=== PATIENT | female | born 1950 | race Caucasian/White ===

== ENCOUNTER 2017-05-25 13:42 | Outpatient (CLI) | payer MEDICARE | END 2017-05-25 13:43 | disposition critical access hospital (66) | LOC: EMS 13:42 | PROVIDERS: ATTEND Surgery | DX: M25.551 Pain in right hip (principal); W18.30XA Fall on same level, unspecified, initial encounter; Y93.01 Activity, walking, marching and hiking; Y92.414 Local residential or business street as the place of occurrence of the external cause | CPT/HCPCS: A0425; A0427 ==

== ENCOUNTER 2017-05-25 13:59 | Inpatient (IN) | payer MEDICARE ==
[2017-05-25] MEDS ORDERED: HYDROmorphone 1 MG/ML CARPUJECT IVP STA ×2 (14:13→15:06)
[2017-05-25] MEDS ORDERED: ALBUTEROL NEB 2.5 MG/3 ML INH STA (14:14)
[2017-05-25] MEDS ORDERED: TETANUS/DIPHTHERIA/PERTUSSIS 0.5 ML SYRINGE IM ONE (14:15)
--- NOTE | 2017-05-25 14:15 | ED Physician Documentation ---
PD HPI LOWER EXT INJURY - Stated complaint Stated Complaint: HIP PX - Chief complaint Chief Complaint: Ext Problem - History obtained from History obtained from: Patient, EMS - History of Present Illness Timing - onset: Today (This is a 67-year-old woman with COPD, not oxygen dependent at home but does take albuterol frequently. She also drinks daily and had some alcohol around 1230. 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 At baseline she does not walk with a cane or walker. She went outside to take out the garbage and get the newspaper and turned rapidly and got dizzy and fell down, directly onto her right side. She did hit her head but denies headache, the major thing is her hip, it hurts a lot and she is unable to walk or bear weight. She also scraped up her hand and hurt her right elbow. Tetanus is unknown known.) - Additional information Additional information: She has a history of atrial fibrillation and is on amiodarone, she says she is not on any blood thinners. Review of Systems Ten Systems: 10 systems reviewed and negative Constitutional: denies: Fever, Chills Nose: denies: Rhinorrhea / runny nose, Congestion Cardiac: denies: Chest pain / pressure, Palpitations Respiratory: reports: Dyspnea, Cough GI: denies: Abdominal Pain, Nausea, Vomiting PD PAST MEDICAL HISTORY - Past Medical History Past Medical History: Yes Cardiovascular: Hypertension, Atrial fibrillation Respiratory: COPD - Present Medications Home Medications: Ambulatory Orders Medication Instructions Recorded Confirmed Amiodarone [Pacerone] 05/25/17 Hydrochlorothiazide 05/25/17 Losartan [Cozaar] 05/25/17 - Allergies Allergies/Adverse Reactions: Allergies Allergy/AdvReac Type Severity Reaction Status Date / Time bacitracin Allergy Unknown Verified 05/25/17 14:08 [From Neosporin ([id number])] bacitracin zinc * Allergy Unknown Verified 05/25/17 14:08 [From Neosporin ([id number])] meperidine HCl * Allergy Unknown Verified 05/25/17 14:09 [From Demerol] neomycin sulfate * Allergy Unknown Verified 05/25/17 14:08 [From Neosporin ([id number])] polymyxin B Allergy Unknown Verified 05/25/17 14:08 [From Neosporin ([id number])] - Living Situation Living Arrangement: reports: At home - Social History Does the pt smoke?: Yes Smoking Status: Current every day smoker Does the pt drink ETOH?: Yes - Family History Family history: reports: Non contributory PD ED PE NORMAL - Vitals Vital signs reviewed: Yes - General General: Alert and oriented X 3, No acute distress - HEENT HEENT: PERRL, EOMI, Other (Telangiectasias on the face) - Neck Neck: Supple, no meningeal sign, No bony TTP - Cardiac Cardiac: RRR, No murmur - Respiratory Respiratory: Other (Mildly diminished, wheezy, rhonchorous throughout, no focal findings) - Abdomen Abdomen: Normal bowel sounds, Soft, Non tender - Extremities Extremities: Other (Right hip is severely tender, shortened and held in slight flexion. The knee and the ankle are nontender in the left lower extremity and Left upper extremity are nontender. She has a little scrape over the third MCP dorsally on the right and she is unable to straighten the right elbow, although she is without tenderness there.) - Neuro Neuro: Alert and oriented X 3, postbed stitcher 2-12 intact, Normal speech - Psych Psych: Normal mood, Normal affect Results - Vitals Vitals: Vital Signs - 24 hr 05/25/17 05/25/17 14:00 16:20 Temperature 35.7 C L Heart Rate 65 66 Respiratory 16 15 Rate Blood Pressure 187/92 H 173/84 H O2 Saturation 92 96 Oxygen O2 Source Nasal cannula - EKG (time done) 1508 Rate: Rate (enter#) (65) Rhythm: NSR (With PAC) [place]: Normal Intervals: Normal CA QRS: Normal Ischemia: Non specific changes (There is a lot of artifact but she does appear to have a QT prolongation and some scooped ST segments laterally) Compare to prior EKG: Old EKG unavailable Computer interpretation: Agree with computer - Labs Labs: Laboratory Tests 05/25/17 05/25/17 05/25/17 15:11 15:11 15:11 WBC 13.2 H RBC 3.22 L Hgb 13.8 Hct 38.2 MCV 118.6 H MCH 42.8 H MCHC 36.0 RDW 14.0 Plt Count 262 MPV 7.2 L Neut # 11.5 H Lymph # 1.0 L [place] # 0.6 Eos # 0.0 Baso # 0.0 Absolute Nucleated RBC 0.00 Nucleated RBC % 0.0 Manual Slide Review Indicated Platelet Estimate NORMAL (130-450,000) RBC Morph Micro Appear 2+ MACROCYTOSIS PT 10.8 INR 1.0 Sodium Potassium Chloride Carbon Dioxide Anion Gap BUN Creatinine Estimated GFR (MDRD) Glucose Calcium Total Bilirubin AST ALT Alkaline Phosphatase Total Protein Albumin Globulin Albumin/Globulin Ratio Lipase Ethyl Alcohol Blood Type O POSITIVE Antibody Screen NEGATIVE 05/25/17 15:11 WBC RBC Hgb Hct MCV MCH MCHC RDW Plt Count MPV Neut # Lymph # [place] # Eos # Baso # Absolute Nucleated RBC Nucleated RBC % Manual Slide Review Platelet Estimate RBC Morph Micro Appear PT INR Sodium 116 L* Potassium 2.7 L Chloride 76 L* Carbon Dioxide 27 Anion Gap 13.0 BUN 10 Creatinine 0.7 Estimated GFR (MDRD) 83 L Glucose 145 H Calcium 8.5 Total Bilirubin 1.2 H AST 51 H ALT 31 Alkaline Phosphatase 142 H Total Protein 6.7 Albumin 3.8 Globulin 2.9 Albumin/Globulin Ratio 1.3 Lipase 36 Ethyl Alcohol < 5.0 Blood Type Antibody Screen - Rads (name of study) CT Head and Cspine Radiology: EMP read contemporaneously (Chronic findings only, no acute trauma) Single view chest Radiology: EMP read contemporaneously (normal) Right hand x-ray Radiology: EMP read contemporaneously (Degenerative changes without acute fracture) Right hip x-ray Radiology: EMP read contemporaneously (Acute femoral neck fracture) R elbow Radiology: EMP read contemporaneously (Displaced proximal olecranon fracture) Procedures - Splint (location) R elbow Splint applied by: Tech Type of splint: Fiberglass, Long arm, Posterior Other: Patient tolerated well, No complications, Neurovascular intact, Sling provided PD MEDICAL DECISION MAKING - ED course ED course: 67-year-old woman presents after ground-level fall with injuries on the right side, specifically the hip and the elbow. There is a concern for intoxication and therefore the head and neck are imaged as well. Imaging does demonstrate a displaced proximal right ulnar fracture and right intertrochanteric hip fracture. Dr. Drummond, the on-call orthopedist was consulted at 3 PM and reviewed her x-rays. He will consult and see the patient in the emergency department and defers to medicine for admission. Spoke with the hospitalist for admission at 3:08 PM. Departure - Departure Disposition: 66 [facility] DC/Xfer Clinical Impression: Hyponatremia Fall Qualifiers: Encounter type: initial encounter Qualified Code(s): W19.XXXA - Unspecified fall, initial encounter Fracture, intertrochanteric, right femur Qualifiers: Encounter type: initial encounter Fracture type: closed Fracture alignment: displaced Qualified Code(s): S72.141A - Displaced intertrochanteric fracture of right femur, initial encounter for closed fracture Fracture of proximal end of right ulna Qualifiers: Encounter type: initial encounter Fracture type: closed Fracture morphology: unspecified fracture morphology Qualified Code(s): S52.001A - Unspecified fracture of upper end of right ulna, initial encounter for closed fracture Condition: Serious
[2017-05-25] MEDS ORDERED: HYDROmorphone 1 MG/ML SYRINGE ONE (14:16)
--- NOTE | 2017-05-25 14:46 | CT Preliminary Report ---
Exam: CT Head W/O IMPRESSION: 1. No acute hemorrhage or mass effect. 2. Small areas of encephalomalacia in the left frontal lobe consistent with old infarcts or chronic t rauma. [facility] SITE ID: [id number]
--- NOTE | 2017-05-25 14:49 | CT Report ---
EXAM: CT HEAD EXAM DATE: 05/25/2017 02:32 PM. CLINICAL HISTORY: Fall with head injury. COMPARISON: None. TECHNIQUE: Multiaxial CT images were obtained from the foramen magnum to the vertex. IV contrast: Non e. Reformats: Coronal. In accordance with CT protocol optimization, one or more of the following dose reduction techniques w ere utilized for this exam: automated exposure control, adjustment of mA and/or KV based on patient s ize, or use of iterative reconstructive technique. FINDINGS: Parenchyma: There are small areas of cortical encephalomalacia in the left superior and medial fronta l lobe. Negative for intracranial acute hemorrhage. No midline shift. Extraaxial Spaces: No abnormal subdural or epidural fluid collection. Ventricles: Normal in size and position. Sinuses: There is mucosal thickening of the left sphenoid sinus. Other sinuses are clear. Bones: No evidence of fracture or calvarial defect. Other: None. IMPRESSION: 1. No acute hemorrhage or mass effect. 2. Small areas of encephalomalacia in the left frontal lobe consistent with old infarcts or chronic t rauma. [facility] Referring Provider Line: [phone] SITE ID: [id number]
--- NOTE | 2017-05-25 14:52 | CT Preliminary Report ---
Exam: CT Cervical Spine W/O IMPRESSION: 1. Chronic degenerative disk disease without acute fracture or subluxation. [facility] SITE ID: [id number]
--- NOTE | 2017-05-25 14:55 | CT Report ---
EXAM: CT CERVICAL SPINE WITHOUT CONTRAST DATE: 05/25/2017 02:32 PM HISTORY: Fall etoh. COMPARISONS: None. TECHNIQUE: Thin-section axial images were acquired of the cervical spine without contrast. Post-proce ssing: Coronal and sagittal reformats. Other: None. In accordance with CT protocol optimization, one or more of the following dose reduction techniques w ere utilized for this exam: automated exposure control, adjustment of mA and/or KV based on patient s ize, or use of iterative reconstructive technique. FINDINGS: Alignment: Normal. No scoliosis or spondylolisthesis. Bones: No fracture. No lytic or distracted bone lesion. There is multilevel degenerative disease. Interspace Levels/Facets: There is mild to moderate disk height loss at C5-C6. There is moderate disk height loss at C6-C7. The re is facet joint space narrowing greatest at left C4-C5. No significant bony central spinal canal st enosis. Musculature: Normal. No fatty atrophy. Other: There is exmx-wy-[id number] centrilobular emphysema. There is a low-density lesion in the left t hyroid lobe. IMPRESSION: 1. Chronic degenerative disk disease without acute fracture or subluxation. [facility] Referring Provider Line: [phone] SITE ID: [id number]
--- NOTE | 2017-05-25 15:11 | XRAY Preliminary Report ---
Exam: XR Chest 1 View IMPRESSION: Clear lungs. [facility] SITE ID: [id number]
--- NOTE | 2017-05-25 15:11 | XRAY Preliminary Report ---
Exam: XR Hand 3 View RT IMPRESSION: Chronic degenerative disease of the right hand including periarticular demineralization a nd second and third metacarpal phalangeal joint space narrowing, raising suspicion for rheumatoid art hritis. No acute fracture. [facility] SITE ID: [id number]
--- NOTE | 2017-05-25 15:13 | XRAY Report ---
EXAM: RIGHT HAND RADIOGRAPHY EXAM DATE: 05/25/2017 02:55 PM. CLINICAL HISTORY: Ground-level fall with hand injury. COMPARISON: None. TECHNIQUE: 3 views. FINDINGS: Bones: There is periarticular demineralization of the hand. There is sclerosis and spurring at the fi rst carpal metacarpal joint. There is diffuse demineralization present. Joints: There is moderate joint space narrowing of the second and third metacarpophalangeal joint. No dislocation. There is subluxation at the first carpal metacarpal joint. Soft Tissues: Normal. No soft tissue swelling. IMPRESSION: Chronic degenerative disease of the right hand including periarticular demineralization a nd second and third metacarpal phalangeal joint space narrowing, raising suspicion for rheumatoid art hritis. No acute fracture. [facility] Referring Provider Line: [phone] SITE ID: [id number]
--- NOTE | 2017-05-25 15:14 | XRAY Preliminary Report ---
Exam: XR Hip w/Pelvis 2-3V RT IMPRESSION: Acute fracture of right femoral neck. [facility] SITE ID: [id number]
--- NOTE | 2017-05-25 15:14 | XRAY Report ---
EXAM: CHEST RADIOGRAPHY EXAM DATE: 05/25/2017 02:56 PM. CLINICAL HISTORY: Injury. Fall. COMPARISON: None. TECHNIQUE: 1 view. FINDINGS: Lungs/Pleura: No focal opacities evident. No pleural effusion. No pneumothorax. Mediastinum: Within exam limitations, the cardiomediastinal contour is normal. Other: None. IMPRESSION: Clear lungs. [facility] Referring Provider Line: [phone] SITE ID: [id number]
--- NOTE | 2017-05-25 15:16 | XRAY Preliminary Report ---
Exam: XR Elbow 3 View RT IMPRESSION: Positive for a displaced olecranon fracture. [facility] SITE ID: [id number]
--- NOTE | 2017-05-25 15:16 | XRAY Report ---
EXAM: RIGHT HIP AND PELVIS RADIOGRAPHY EXAM DATE: 05/25/2017 02:56 PM. HISTORY: Hip inj. COMPARISONS: 12/03/2011. TECHNIQUE: 1 view of the pelvis and 1 view of the hip. FINDINGS: Bones: Positive for an intertrochanteric fracture of the right femur. Joints: No subluxation or dislocation. Soft Tissues: Nonobstructive bowel gas pattern. IMPRESSION: Acute fracture of right femoral neck. [facility] Referring Provider Line: [phone] SITE ID: [id number]
--- NOTE | 2017-05-25 15:19 | XRAY Report ---
EXAM: RIGHT ELBOW RADIOGRAPHY EXAM DATE: 05/25/2017 02:55 PM. CLINICAL HISTORY: Elbow injury and soft tissue swelling. COMPARISON: None. TECHNIQUE: 3 views. FINDINGS: Bones: Positive for a displaced fracture of the olecranon. The proximal olecranon fragment is displac ed by 2.8 cm. Joints: The radius capitellum alignment appears satisfactory. Soft Tissues: There is soft tissue swelling around the elbow. IMPRESSION: Positive for a displaced olecranon fracture. [facility] Referring Provider Line: [phone] SITE ID: [id number]
[2017-05-25 15:28] LABS: PT - PROTHROMBIN TIME 10.8 secs (9.9-12.6)
[2017-05-25 15:35] LABS: BASOPHILS % (AUTO) 0.1 %; EOSINOPHILS % (AUTO) 0.2 %; HCT - HEMATOCRIT 38.2 % (37.0-47.0); HGB - HEMOGLOBIN 13.8 g/dL (12.0-16.0); LYMPHOCYTES % (AUTO) 7.6 %; MEAN CORPUSCULAR HEMOGLOBIN 42.8 pg (27.0-31.0); MEAN CORPUSCULAR VOLUME 118.6 fL (81.0-99.0); MEAN PLATELET VOLUME 7.2 fL (7.9-10.8); MONOCYTES # (AUTO) 0.6 10^3/uL (0.0-1.0); MONOCYTES % (AUTO) 4.8 %; NEUTROPHILS # (AUTO) 11.5 10^3/uL (1.5-6.6); NEUTROPHILS % (AUTO) 87.3 %; RED BLOOD COUNT 3.22 10^6/uL (4.20-5.40); UNCORRECTED WHITE BLOOD COUNT 13.2 x10^3/uL; WHITE BLOOD COUNT 13.2 x10^3/uL (4.8-10.8)
[2017-05-25 15:44] LABS: ALBUMIN/GLOBULIN RATIO 1.3 (1.0-2.2); BILIRUBIN,TOTAL 1.2 mg/dL (0.2-1.0); BUN - BLOOD UREA NITROGEN 10 mg/dL (6-20); CALCIUM 8.5 mg/dL (8.5-10.3); CARBON DIOXIDE - CO2 27 mmol/L (21-32); CREATININE 0.7 mg/dL (0.4-1.0); GFR - MDRD 83 (>89); GLUCOSE 145 mg/dL (70-100); LIPASE 36 U/L (22-51); POTASSIUM 2.7 mmol/L (3.5-5.0); SODIUM 116 mmol/L (135-145); TOTAL PROTEIN 6.7 g/dL (6.7-8.2)
[2017-05-25] MEDS ORDERED: MULTIVITAMIN 10 ML in SODIUM CHLORIDE 0.9% 1,000 ML IV STA (15:44)
[2017-05-25] MEDS ORDERED: TETANUS/DIPHTHERIA TOXOID 0.5 ML SYRINGE IM ONE (15:44)
[2017-05-25] MEDS ORDERED: HYDROmorphone 1 MG/ML CARPUJECT ONE (15:44)
[2017-05-25] MEDS ORDERED: MAGNESIUM SULFATE 2 GRAM 2 GM/50 ML BAG IV STA (15:44)
[2017-05-25] MEDS ORDERED: THIAMINE INJ 100 MG, FOLIC ACID INJ 1 MG in SODIUM CHLORIDE 0.9% 100ML 100 ML IV STA (15:44)
[2017-05-25 15:45] LABS: CHLORIDE 76 mmol/L (101-111)
[2017-05-25 15:52] LABS: PLATELET ESTIMATE, MANUAL NORMAL (130-450,000) (NORMAL)
[2017-05-25] MEDS ORDERED: POTASSIUM CHLOR 10 MEQ/100 ML 10 MEQ/100 ML BAG IV ONE ×2 (15:56→16:37)
--- NOTE | 2017-05-25 16:02 | PROVIDER PROGRESS NOTE ---
Subjective - Prog Note Date Prog Note Date: 05/25/17 Prog Note Time: 16:00 - Subjective Subjective: Patient [facility] a GLF at home today sustaining a closed right IT/low basilar neck hip fracture and a closed right olecranon fracture. No LOC or other injury. No prior el;bow or hip fracture. No distal weakness/numbness. Objective - Vital Signs/Intake & Output Vital Signs: Vital Signs x48h Temp Pulse Resp BP Pulse Ox 05/25/17 14:00 35.7 C L 65 16 187/92 H 92 - Lab Results Fish Bones: 05/25/17 15:11 05/25/17 15:11 Other Labs: Lab Results x24hrs 05/25/17 05/25/17 05/25/17 Range/Units 15:11 15:11 15:11 WBC 13.2 H (4.8-10.8) x10^3/uL RBC 3.22 L (4.20-5.40) 10^6/uL Hgb 13.8 (12.0-16.0) g/dL Hct 38.2 (37.0-47.0) % MCV 118.6 H (81.0-99.0) fL MCH 42.8 H (27.0-31.0) pg MCHC 36.0 (32.0-36.0) g/dL RDW 14.0 (12.0-15.0) % Plt Count 262 (130-450) 10^3/uL MPV 7.2 L (7.9-10.8) fL Neut # 11.5 H (1.5-6.6) 10^3/uL Lymph # 1.0 L (1.5-3.5) 10^3/uL [place] # 0.6 (0.0-1.0) 10^3/uL Eos # 0.0 (0.0-0.7) 10^3/uL Baso # 0.0 (0.0-0.1) 10^3/uL Absolute Nucleated RBC 0.00 x10^3/uL Nucleated RBC % 0.0 /100WBC Manual Slide Review Indicated Platelet Estimate NORMAL (130-450,000) (NORMAL) RBC Morph Micro Appear 2+ MACROCYTOSIS (NORMAL) PT 10.8 (9.9-12.6) secs INR 1.0 (0.8-1.2) Sodium 116 L* (135-145) mmol/L Potassium 2.7 L (3.5-5.0) mmol/L Chloride 76 L* (101-111) mmol/L Carbon Dioxide 27 (21-32) mmol/L Anion Gap 13.0 (6-13) BUN 10 (6-20) mg/dL Creatinine 0.7 (0.4-1.0) mg/dL Estimated GFR (MDRD) 83 L (>89) Glucose 145 H (70-100) mg/dL Calcium 8.5 (8.5-10.3) mg/dL Total Bilirubin 1.2 H (0.2-1.0) mg/dL AST 51 H (10-42) IU/L ALT 31 (10-60) IU/L Alkaline Phosphatase 142 H (42-121) IU/L Total Protein 6.7 (6.7-8.2) g/dL Albumin 3.8 (3.2-5.5) g/dL Globulin 2.9 (2.1-4.2) g/dL Albumin/Globulin Ratio 1.3 (1.0-2.2) Lipase 36 (22-51) U/L Ethyl Alcohol < 5.0 mg/dL - Diagnostic Imaging Diagnostic Imaging Comments: XR show a displaced right olecranon fracture. Displaced right IT or low basilar neck hip fracture - Other Results/Comments Other Results/Comments: EXAM: Painful right elbow ROM with superficial abrasions about elbow. Moves fingers well. Sensation intact. Good cap filling. Painful right hip ROM. Sensation intact. Moves toes well. Good cap filling Assessment/Plan - Problem List (1) Fracture, intertrochanteric, right femur Impression: Plan: After medical stabilization, plan surgical fixation of hip fracture. Mindyt short interTan nailing of hip fracture. [facility] AM and Dr. Carl Ledezma will be taking over orthopedic care for this patient. Qualifiers: Encounter type: initial encounter Fracture type: closed Fracture alignment: displaced Qualified Code(s): S72.141A - Displaced intertrochanteric fracture of right femur, initial encounter for closed fracture (2) Fracture of proximal end of right ulna Impression: PLAN: After medical stabilization, plan ORIF of olecranon fracture, likely with tension band wiring of fracture. Likely both surgeries will be done at the same time. Dr. Ledezma will be performing sugery after medical stabilization of patient. Qualifiers: Encounter type: initial encounter Fracture type: closed Fracture morphology: unspecified fracture morphology Qualified Code(s): S52.001A - Unspecified fracture of upper end of right ulna, initial encounter for closed fracture
[2017-05-25] MEDS ORDERED: MAGNESIUM SULFATE 2 GRAM 2 GM/50 ML BAG IV ONE (16:03)
--- NOTE | 2017-05-25 17:17 | CONSULTATION NOTE ---
DATE OF CONSULTATION: REQUESTING PROVIDER: Sal Ybarra MD of the emergency room department. HISTORY OF PRESENT ILLNESS: The patient is a 67-year-old female who apparently was evaluate d in the emergency room on the day of her admission following a ground-level fall at her home. The pa tient denied any loss of consciousness. Noted immediate pain in her right hip and right elbow was beba ble to stand and weight bear on the right side. Taken by the to the emergency room by ambulance for a n evaluation of her injuries. Again, denied any loss of consciousness. No distal weakness or numbness noted in the right upper extremity. No prior fractures noted. EXAMINATION: Some superficial abrasions around the right elbow. There is a painful crepitation noted at the right elbow with range of motion. The patient moves her fingers and thumb well. Sensation inta ct throughout. Good capillary filling of the digits noted. PHYSICAL EXAMINATION: Right hip shows painful range of motion of the hip today. Tenderness over the l ateral aspect of the hip noted. The patient moves her toes well. Sensation intact in the right lower extremity. Good capillary filling noted of the digits as well. X-rays that were taken show a displaced right olecranon fracture present. Also, a displaced intertroc hanteric/low basilar neck hip fracture on the right side was noted on films as well. ADMISSION LABORATORIES: Abnormal including a sodium of 116, a chloride of 76. ASSESSMENT 1. Displaced right intertrochanteric/low basilar neck hip fracture. 2. Closed displaced right dominant olecranon fracture. 3. Hyponatremia. PLAN: The patient is being admitted to the medical service for medical evaluation and stabilization, particularly with regard to her hyponatremia. Once her condition is stabilized and she has been medic ally cleared, she will likely require surgical orthopedic stabilization and fixation of her fractures . One option would be proceeding with a short InterTan nailing of her right hip fracture as well as a tension band wiring and fixation for her right olecranon fracture. Beginning on May 26, Dr. Mirela Ledezma will be following the patient or her orthopedic needs on this hospitalization. I have discussed the patient's diagnosis and potential treatment options with the patient already. No c onsent has been signed yet. JOB #: [id number] EXT JOB #:[id number]
[2017-05-25] MEDS ORDERED: PROCHLORPERAZINE 10 MG/2 ML VIAL IVP PRN (17:20)
[2017-05-25] MEDS ORDERED: SODIUM CHLORIDE 0.9% 1,000 ML IV SCH ×2 (18:00→22:21)
[2017-05-25] MEDS ORDERED: LORazepam 0.5 MG TABLET PO PRN (18:51)
[2017-05-25] MEDS: HYDROmorphone 1 MG/ML SYRINGE IVP PRN (19:37)
[2017-05-25] MEDS: SODIUM CHLORIDE FLUSH 0.9% 10 ML SYRINGE IVP PRN (19:37)
[2017-05-25] MEDS: NICOTINE 7 MG PATCH TOP SCH (19:41)
[2017-05-25] MEDS: SODIUM CHLORIDE FLUSH 0.9% 10 ML SYRINGE IVP SCH (21:13)
[2017-05-25] MEDS: PANTOPRAZOLE 40 MG VIAL IVP SCH (21:13)
[2017-05-25 21:49] LABS: MAGNESIUM 2.3 mg/dL (1.7-2.8); PHOSPHORUS 2.6 mg/dL (2.5-4.6)
[2017-05-25] MEDS: oxyCODONE 5 MG TABLET PO PRN (22:16)
[2017-05-25] MEDS: POTASSIUM CHLORIDE 20 MEQ TABLET PO SCH (22:17)
[2017-05-25] MEDS: SODIUM CHLORIDE 0.9% 1,000 ML IV SCH (22:45)
[2017-05-25] MEDS ORDERED: POTASSIUM CHLOR 20 MEQ/100 ML 20 MEQ/100 ML BAG IV SCH (23:00)
--- NOTE | 2017-05-26 00:10 | HISTORY & PHYSICAL EXAMINATION ---
DATE OF ADMISSION: 05/25/2017 HISTORY OF PRESENT ILLNESS: This is a 67-year-old white female with history of atrial fibrillation on Pacerone to maintain sinus rhythm, she does not take any anticoagulants, however (for unknown reasons). She has a history of excessive alcohol intake with "8 shots of vodka mixed drinks daily" and she has a history of hypertension and COPD and continues to smoke. Today, the patient was outdoors and took a rapid turn and got dizzy and fell down directly onto her right side and has come in with multiple areas of pain and trauma and found to have a hip fracture as well as an elbow fracture. The patient denies any chest pain, palpitations, full syncope. She denies any CHF symptoms. In general she is compliant with her medications. MEDICATIONS AT HOME: 1. Amiodarone 200 mg daily. 2. Hydrochlorothiazide unknown dose daily. 3. Losartan unknown dose daily. ALLERGIES: 1. BACITRACIN. 2. DEMEROL. 3. NEOMYCIN. 4. POLYMYXIN. SOCIAL HISTORY: She is a smoker of 1 pack per day for many years. She denies any marijuana use or illicit drug use. She does drink alcohol as described above and the remainder of the ROS is negative. FAMILY HISTORY: Noncontributory. No cardiac history or other major history. REVIEW OF SYSTEMS: A complete review of systems was done and the only pertinent positives or negatives are in the HPI. PHYSICAL EXAMINATION: GENERAL: Reveals a white female who appears slightly lethargic (pain medications were given in the ER). VITAL SIGNS: Blood pressure 187/92 initially in the ER with a heart rate of 65 in normal sinus rhythm, afebrile. HEENT: Unremarkable. Mucosa is moist. NECK: Shows no JVD in a vertical position. No carotid bruits. CHEST: Clear. HEART: Sounds are normal. ABDOMEN: Soft, nontender to light palpation. EXTREMITIES: No clubbing, cyanosis, or edema. She has her right arm in a sling. EKG: Normal sinus rhythm with left atrial enlargement and LVH with strain pattern and a PAC. Chest x-ray: no active pulmonary disease. LABS: Sodium 116, potassium 2.7, BUN 10, creatinine 0.7, magnesium 2.3, total bilirubin 1.2, AST 51, ALT 31, alkaline phosphatase 142, normal lipase. INR is normal at 1.0. White blood count 13.2 with a left shift, hemoglobin 13.8 with MCV of 118 and the RBC morphology shows macrocytosis. IMPRESSION: 1. Hyponatremia, marked, which is likely from alcohol intake and possibly poor diet. 2. Hypokalemia. 3. Status post fall with trauma, right hip fracture and elbow fracture. 4. History of afib, but is NSR on Amiodarone. On no aspirin or anticoagulant due to unknown reason. 5. Elevated MCV on CBC is consistent with vitamin deficiencies connected with alcohol abuse. 6. Alcohol abuse. PLAN: Admit the patient to the ICU for close monitoring due to marked hyponatremia, watch for seizures. Start the patient on normal saline for sodium replacement and restrict free water enterally and parenterally. Continue the patient's Pacerone which is maintaining sinus rhythm. Replace her potassium. Follow her electrolytes. Agree with the thiamine, multivitamin and "banana bag" replacements that were already started in the emergency room and continue with thiamine and folate replacement and vitamin replacement. Start the patient on Ativan p.r.n. for the potential of alcohol withdrawal. Start the patient on Nicoderm patch for tobacco withdrawal. Plan for surgery from Orthopedics as per their consult. JOB #: [id number] EXT JOB #:[id number] ISIAH
[2017-05-26] MEDS: oxyCODONE 5 MG TABLET PO PRN ×2 (02:21→21:05)
[2017-05-26] MEDS: POTASSIUM CHLORIDE 20 MEQ TABLET PO SCH (02:21)
[2017-05-26] MEDS: HYDROmorphone 1 MG/ML SYRINGE IVP PRN ×3 (03:46→18:15)
[2017-05-26] MEDS: SODIUM CHLORIDE 0.9% 1,000 ML IV SCH ×3 (04:19→20:06)
[2017-05-26] MEDS: SODIUM CHLORIDE FLUSH 0.9% 10 ML SYRINGE IVP SCH ×3 (05:55→20:40)
[2017-05-26 06:17] LABS: BASOPHILS % (AUTO) 0.2 %; HCT - HEMATOCRIT 34.7 % (37.0-47.0); HGB - HEMOGLOBIN 12.3 g/dL (12.0-16.0); LYMPHOCYTES # (AUTO) 0.9 10^3/uL (1.5-3.5); MEAN CORPUSCULAR HEMOGLOBIN 43.7 pg (27.0-31.0); MEAN CORPUSCULAR HGB CONC 35.6 g/dL (32.0-36.0); MEAN CORPUSCULAR VOLUME 122.8 fL (81.0-99.0); MONOCYTES # (AUTO) 0.9 10^3/uL (0.0-1.0); MONOCYTES % (AUTO) 7.4 %; NEUTROPHILS # (AUTO) 10.7 10^3/uL (1.5-6.6); NEUTROPHILS % (AUTO) 85.4 %; RED BLOOD COUNT 2.82 10^6/uL (4.20-5.40); RED CELL DISTRIBUTION WIDTH 13.8 % (12.0-15.0); UNCORRECTED WHITE BLOOD COUNT 13.2 x10^3/uL; WHITE BLOOD COUNT 12.5 x10^3/uL (4.8-10.8)
[2017-05-26 06:26] LABS: BILIRUBIN,DIRECT 0.2 mg/dL (0.1-0.5); BILIRUBIN,TOTAL 0.6 mg/dL (0.2-1.0); CREATININE 0.7 mg/dL (0.4-1.0); MAGNESIUM 1.9 mg/dL (1.7-2.8); PHOSPHORUS 2.6 mg/dL (2.5-4.6); TOTAL PROTEIN 5.7 g/dL (6.7-8.2)
[2017-05-26] MEDS: POTASSIUM CHLOR 10 MEQ/100 ML 10 MEQ/100 ML BAG IV SCH ×4 (06:42→10:25)
[2017-05-26 07:11] LABS: PLATELET ESTIMATE, MANUAL DECREASED (<130,000) (NORMAL); PLATELET MORPHOLOGY PLATELET CLUMPING (NORMAL)
[2017-05-26] MEDS ORDERED: LOSARTAN 50 MG TABLET PO SCH (09:00)
[2017-05-26] MEDS: NICOTINE 7 MG PATCH TOP SCH (09:38)
[2017-05-26] MEDS: PANTOPRAZOLE 40 MG VIAL IVP SCH ×2 (09:38→20:40)
[2017-05-26] MEDS: THIAMINE 100 MG TABLET PO SCH (09:39)
[2017-05-26] MEDS: AMIODARONE 200 MG TABLET PO SCH (09:48)
--- NOTE | 2017-05-26 17:31 | PROVIDER PROGRESS NOTE ---
Assessment/Plan - Problem List (1) Hyponatremia Assessment/Plan: Improving serum Na with free water restriction and saline hydration. Continue to monitor labs (2) Alcohol abuse Assessment/Plan: Pt is on Ativan to prevent DTs, is somnolent. Continue to monitor (3) Fracture, intertrochanteric, right femur Qualifiers: Encounter type: initial encounter Fracture type: closed Fracture alignment: displaced Qualified Code(s): S72.141A - Displaced intertrochanteric fracture of right femur, initial encounter for closed fracture Assessment/Plan: Sandy saenz. Dr Veloz has planned ortho surgery for tomorrow, will feed Pt today (4) Hypotension Assessment/Plan: Borderline. This is probably due to sedation and Losartan dose. Will DC Losartan currently. Will continue hydration att 100 cc/hr (5) Afib Assessment/Plan: Hx of Afib, but Pt in NSR on Amiodarone, which will be continued - Current Meds Current Meds: Current Medications Generic Name Dose Route Start Last Admin Trade Name Freq PRN Reason Stop Dose Admin Amiodarone HCl 200 mg 05/26/17 09:00 05/26/17 09:48 Pacerone PO 200 mg DAILY RAFA Administration Hydromorphone HCl 1 mg 05/25/17 17:20 05/26/17 12:48 Dilaudid Inj Syringe IVP 1 mg Q2HR PRN Administration Pain 8 to 10 Sodium Chloride 1,000 mls @ 100 mls/hr 05/25/17 18:00 05/26/17 09:09 Normal Saline 0.9% IV 100 mls/hr .Q10H RAFA Administration Lorazepam 0.5 mg 05/25/17 18:51 05/26/17 05:55 Ativan PO 0.5 mg Q6H PRN Administration Anxiety Losartan Potassium 25 mg 05/26/17 09:00 05/26/17 09:39 Cozaar PO 25 mg DAILY RAFA Administration Nicotine 1 patch 05/25/17 19:00 05/26/17 09:38 Nicoderm TOP 1 patch DAILY RAFA Administration Oxycodone HCl 5 mg 05/25/17 17:20 05/26/17 02:21 Roxicodone PO 5 mg Q4HR PRN Administration Pain 5 to 7 Pantoprazole Sodium 40 mg 05/25/17 21:00 05/26/17 09:38 Protonix IVP 40 mg BID RAFA Administration Sodium Chloride 10 ml 05/25/17 22:00 05/26/17 15:15 Normal Saline Flush 0.9% IVP Not Given Q8HR RAFA Sodium Chloride 10 ml 05/25/17 17:20 05/25/17 19:37 Normal Saline Flush 0.9% IVP 10 ml PRN PRN Administration NEEDED PER PROVIDER ORDERS Thiamine HCl 100 mg 05/26/17 09:00 05/26/17 09:39 Vitamin B-1 PO 100 mg DAILY RAFA Administration - Lab Result Fish Bone Diagrams: 05/26/17 05:09 05/26/17 05:09 - Additional Planning My Orders: My Active Orders 05/25/17 18:00 Sodium Chloride 0.9% [Normal Saline 0.9%] 1,000 ml IV 100 mls/hr 05/25/17 18:51 LORazepam [Ativan] 0.5 mg PO Q6H PRN 05/25/17 19:00 Nicotine 7 mg Patch [Nicoderm] 1 patch TOP DAILY 05/26/17 09:00 Amiodarone [Pacerone] 200 mg PO DAILY Losartan [Cozaar] 25 mg PO DAILY Thiamine [Vitamin B-1] 100 mg PO DAILY 05/26/17 Breakfast DIET [Regular Diet] [DIET] 05/27/17 05:00 BMP - BASIC METABOLIC PANEL [CHEM] DAILYLAB CBC - COMP BLD CT W/AUTO DIFF [HEME] DAILYLAB LIVER PANEL [CHEM] DAILYLAB Subjective - Subjective Patient Reports: Resting Comfortably Nursing Reports: Other (Has diffuse pain) Objective Vital Signs: Vital Signs - 24 hr 05/25/17 05/25/17 05/25/17 19:00 19:29 20:00 Temperature 36.7 C 36.5 C Heart Rate [ 64 66 65 Monitoring electrodes] Respiratory 16 14 18 Rate Blood Pressure 160/81 H 122/64 114/74 [Brachial artery] O2 Saturation 93 92 95 05/25/17 05/25/17 05/25/17 21:00 22:09 22:21 Temperature Heart Rate [ 63 73 64 Monitoring electrodes] Respiratory 14 11 L 11 L Rate Blood Pressure 105/62 71/59 L 137/68 H [Brachial artery] O2 Saturation 95 94 96 05/25/17 05/26/17 05/26/17 23:00 00:00 01:00 Temperature 36.5 C Heart Rate [ 63 67 66 Monitoring electrodes] Respiratory 12 14 14 Rate Blood Pressure 101/54 L 101/57 L 108/60 [Brachial artery] O2 Saturation 97 99 97 05/26/17 05/26/17 05/26/17 02:00 03:00 04:00 Temperature 36.8 C Heart Rate [ 65 66 68 Monitoring electrodes] Respiratory 14 16 10 L Rate Blood Pressure 112/62 127/66 127/69 [Brachial artery] O2 Saturation 100 100 100 05/26/17 05/26/17 05/26/17 05:00 06:00 07:00 Temperature Heart Rate [ 67 67 67 Monitoring electrodes] Respiratory 14 10 L 13 Rate Blood Pressure 136/75 H 121/60 106/66 [Brachial artery] O2 Saturation 100 97 99 05/26/17 05/26/17 05/26/17 08:00 09:00 10:00 Temperature 36.9 C Heart Rate [ 68 69 73 Monitoring electrodes] Respiratory 15 19 20 Rate Blood Pressure 107/77 109/69 108/63 [Brachial artery] O2 Saturation 98 100 100 05/26/17 05/26/17 05/26/17 11:00 12:00 13:00 Temperature 36.9 C Heart Rate [ 71 78 74 Monitoring electrodes] Respiratory 16 16 20 Rate Blood Pressure 110/70 105/61 103/63 [Brachial artery] O2 Saturation 100 100 100 05/26/17 05/26/17 05/26/17 14:00 15:00 16:00 Temperature 37.1 C Heart Rate [ 74 72 77 Monitoring electrodes] Respiratory 14 16 18 Rate Blood Pressure 106/56 L 92/38 L 91/60 [Brachial artery] O2 Saturation 100 100 100 Oxygen O2 Source Nasal cannula I&O (Last 24 Hrs): Intake and Output Totals x24h 05/24/17 05/25/17 05/26/17 23:59 23:59 23:59 Intake Total 3886.2 1520 Output Total 563 551 Balance 3323.2 969 General: Other (Sleepy) HEENT: Mucous membr. moist/pink Neck: Supple Cardiovascular: Regular rate Respiratory: No respiratory distress Abdomen: Soft Extremities: No edema, Other (Arm sling R) - Results Results: Laboratory Results WBC 12.5 x10^3/uL (4.8-10.8) H 05/26/17 05:09 RBC 2.82 10^6/uL (4.20-5.40) L 05/26/17 05:09 Hgb 12.3 g/dL (12.0-16.0) 05/26/17 05:09 Hct 34.7 % (37.0-47.0) L 05/26/17 05:09 MCV 122.8 fL (81.0-99.0) H 05/26/17 05:09 MCH 43.7 pg (27.0-31.0) H 05/26/17 05:09 MCHC 35.6 g/dL (32.0-36.0) 05/26/17 05:09 RDW 13.8 % (12.0-15.0) 05/26/17 05:09 Plt Count TNP 05/26/17 05:09 MPV TNP 05/26/17 05:09 Neut # 10.7 10^3/uL (1.5-6.6) H 05/26/17 05:09 Lymph # 0.9 10^3/uL (1.5-3.5) L 05/26/17 05:09 Donley # 0.9 10^3/uL (0.0-1.0) 05/26/17 05:09 Eos # 0.0 10^3/uL (0.0-0.7) 05/26/17 05:09 Baso # 0.0 10^3/uL (0.0-0.1) 05/26/17 05:09 Absolute Nucleated RBC 0.00 x10^3/uL 05/26/17 05:09 Nucleated RBC % 0.0 /100WBC 05/26/17 05:09 Manual Slide Review Indicated 05/26/17 05:09 Platelet Estimate DECREASED (<130,000) (NORMAL) 05/26/17 05:09 Platelet Morphology PLATELET CLUMPING (NORMAL) 05/26/17 05:09 RBC Morph Micro Appear 1+ STOMATOCYTES (NORMAL) 05/26/17 05:09 PT 10.8 secs (9.9-12.6) 05/25/17 15:11 INR 1.0 (0.8-1.2) 05/25/17 15:11 Sodium 122 mmol/L (135-145) L 05/26/17 05:09 Potassium 3.0 mmol/L (3.5-5.0) L 05/26/17 05:09 Chloride 90 mmol/L (101-111) L 05/26/17 05:09 Carbon Dioxide 24 mmol/L (21-32) 05/26/17 05:09 Anion Gap 8.0 (6-13) 05/26/17 05:09 BUN 11 mg/dL (6-20) 05/26/17 05:09 Creatinine 0.7 mg/dL (0.4-1.0) 05/26/17 05:09 Estimated GFR (MDRD) 83 (>89) L 05/26/17 05:09 Glucose 118 mg/dL (70-100) H 05/26/17 05:09 Calcium 8.0 mg/dL (8.5-10.3) L 05/26/17 05:09 Phosphorus 2.6 mg/dL (2.5-4.6) 05/26/17 05:09 Magnesium 1.9 mg/dL (1.7-2.8) 05/26/17 05:09 Total Bilirubin 0.6 mg/dL (0.2-1.0) 05/26/17 05:09 Direct Bilirubin 0.2 mg/dL (0.1-0.5) 05/26/17 05:09 AST 40 IU/L (10-42) 05/26/17 05:09 ALT 24 IU/L (10-60) 05/26/17 05:09 Alkaline Phosphatase 127 IU/L (42-121) H 05/26/17 05:09 Total Protein 5.7 g/dL (6.7-8.2) L 05/26/17 05:09 Albumin 3.3 g/dL (3.2-5.5) 05/26/17 05:09 Globulin 2.4 g/dL (2.1-4.2) 05/26/17 05:09 Albumin/Globulin Ratio 1.3 (1.0-2.2) 05/25/17 15:11 Lipase 36 U/L (22-51) 05/25/17 15:11 Ethyl Alcohol < 5.0 mg/dL 05/25/17 15:11 Blood Type O POSITIVE 05/25/17 15:11 Antibody Screen NEGATIVE 05/25/17 15:11
[2017-05-26] MEDS ORDERED: SODIUM CHLORIDE 0.9% 500 ML IV SCH (23:15)
[2017-05-26] MEDS ORDERED: LORazepam 2 MG/ML SYRINGE IVP PRN (23:23)
[2017-05-27] MEDS: oxyCODONE 5 MG TABLET PO PRN (01:38)
[2017-05-27] MEDS ORDERED: SODIUM CHLORIDE 0.9% 500 ML IV SCH (03:00)
[2017-05-27] MEDS: SODIUM CHLORIDE FLUSH 0.9% 10 ML SYRINGE IVP SCH ×3 (05:36→22:03)
[2017-05-27 05:49] LABS: EOSINOPHILS % (AUTO) 0.2 %; HCT - HEMATOCRIT 32.5 % (37.0-47.0); HGB - HEMOGLOBIN 11.4 g/dL (12.0-16.0); LYMPHOCYTES # (AUTO) 0.9 10^3/uL (1.5-3.5); LYMPHOCYTES % (AUTO) 7.9 %; MEAN CORPUSCULAR HEMOGLOBIN 44.1 pg (27.0-31.0); MEAN CORPUSCULAR VOLUME 125.9 fL (81.0-99.0); MEAN PLATELET VOLUME 7.9 fL (7.9-10.8); MONOCYTES # (AUTO) 0.9 10^3/uL (0.0-1.0); MONOCYTES % (AUTO) 7.8 %; NEUTROPHILS % (AUTO) 84.1 %; RED BLOOD COUNT 2.58 10^6/uL (4.20-5.40); RED CELL DISTRIBUTION WIDTH 13.6 % (12.0-15.0)
[2017-05-27 06:01] LABS: BILIRUBIN,DIRECT 0.1 mg/dL (0.1-0.5); BILIRUBIN,TOTAL 0.7 mg/dL (0.2-1.0); CREATININE 0.7 mg/dL (0.4-1.0)
[2017-05-27] MEDS: SODIUM CHLORIDE 0.9% 1,000 ML IV SCH ×2 (06:06→17:41)
[2017-05-27 06:10] LABS: MAGNESIUM 1.5 mg/dL (1.7-2.8); PHOSPHORUS 2.1 mg/dL (2.5-4.6)
[2017-05-27] MEDS: HYDROmorphone 1 MG/ML SYRINGE IVP PRN ×2 (06:13→17:41)
[2017-05-27] MEDS ORDERED: POTASSIUM PHOSPHATE 15 MMOL in SODIUM CHLORIDE 0.9% 250 ML IV ONE (06:17)
[2017-05-27] MEDS ORDERED: MAGNESIUM SULFATE 2 GRAM 2 GM/50 ML BAG IV ONE (06:17)
[2017-05-27 06:38] LABS: PLATELET ESTIMATE, MANUAL NORMAL (130-450,000) (NORMAL); PLATELET MORPHOLOGY NORMAL APPEARANCE (NORMAL)
[2017-05-27] MEDS: AMIODARONE 200 MG TABLET PO SCH (09:18)
[2017-05-27] MEDS: NICOTINE 7 MG PATCH TOP SCH (09:19)
[2017-05-27] MEDS: PANTOPRAZOLE 40 MG VIAL IVP SCH ×2 (09:19→21:53)
[2017-05-27] MEDS: THIAMINE 100 MG TABLET PO SCH (09:20)
[2017-05-27] MEDS: IPRATROPIUM/ALBUTEROL 3 ML NEB INH PRN ×2 (11:30→20:48)
[2017-05-27] MEDS ORDERED: SODIUM CHLORIDE 0.9% 1,000 ML IV ONE (12:49)
[2017-05-27] MEDS ORDERED: BUPIVACAINE 0.25%-EPI 1:200000 PF 30 ML VIAL SUBQ ONE ×4 (13:44→15:03)
[2017-05-27] MEDS ORDERED: LIDOCAINE-MPF 1% 30 ML VIAL SUBQ ONE (13:44)
[2017-05-27] MEDS ORDERED: LACTATED RINGERS 1,000 ML IV ONE (14:15)
--- NOTE | 2017-05-27 15:24 | OPERATIVE REPORT ---
Operative Report - General Admit Date: 05/25/17 Procedure Date: 05/27/17 Planned Procedure: ORIF right olecranon fracture/ Bipolar replacement right hip Pre-Op Diagnosis: Right Olecranon fracture/Right femoral neck fracture Procedure Performed: Right Olecranon ORIF Right hip bipolar replacement Post Op Diagnosis: same - Procedure Note Primary Surgeon: stefano Anesthesia Technique: General LMA Estimated Blood Loss (mL): 250
[2017-05-27] MEDS ORDERED: ONDANSETRON 4 MG/2 ML VIAL IVP PRN (15:25)
[2017-05-27] MEDS ORDERED: ACETAMINOPHEN 1,000 MG/100 ML 100 ML IV PRN (15:25)
[2017-05-27] MEDS ORDERED: ACETAMINOPHEN 325 MG TABLET PO PRN (15:25)
[2017-05-27] MEDS ORDERED: ACETAMINOPHEN 1,000 MG/100 ML 100 ML IV ONE (15:30)
[2017-05-27] MEDS ORDERED: ceFAZolin 1 GM VIAL IV ONE (15:30)
[2017-05-27] MEDS ORDERED: PROPOFOL 200 MG/20 ML VIAL IVP ONE (15:30)
[2017-05-27] MEDS ORDERED: fentaNYL 100 MCG/2 ML VIAL IVP ONE (15:30)
[2017-05-27] MEDS ORDERED: KETOROLAC 30 MG/ML VIAL IVP ONE (15:30)
[2017-05-27] MEDS ORDERED: ONDANSETRON 4 MG/2 ML VIAL IVP ONE (15:30)
[2017-05-27] MEDS ORDERED: DEXAMETHASONE 4 MG/ML VIAL IVP ONE (15:30)
[2017-05-27] MEDS ORDERED: ePHEDrine 50 MG/ML VIAL IVP ONE (15:30)
[2017-05-27] MEDS ORDERED: METOCLOPRAMIDE 10 MG/2 ML VIAL IVP ONE (15:30)
[2017-05-27] MEDS ORDERED: ROPIVACAINE 0.5% PF 20 ML AMPULE EP ONE (15:30)
[2017-05-27] MEDS ORDERED: TRANEXAMIC ACID 1,000 MG/10 ML VIAL IV ONE (15:30)
[2017-05-27] MEDS ORDERED: ALBUTEROL NEB 2.5 MG/3 ML INH ONE (15:54)
--- NOTE | 2017-05-27 17:04 | PROVIDER PROGRESS NOTE ---
Assessment/Plan - Problem List (1) Hyponatremia Assessment/Plan: Resolving Na up to 130 today Continue IVFs Patient clear for surgery Monitor Na (2) Alcohol abuse Assessment/Plan: Pt is on Ativan to prevent DTs History of alcohol abuse CIWA score 6-8 Monitor closely (3) Fracture, intertrochanteric, right femur Qualifiers: Encounter type: initial encounter Fracture type: closed Fracture alignment: displaced Qualified Code(s): S72.141A - Displaced intertrochanteric fracture of right femur, initial encounter for closed fracture Assessment/Plan: OR today POD#0 Bipolar replacement right hip Pain control PT evaluation tomorrow Patient will likely need rehab Start DVT prophylaxis post op (4) Right Olecranon Fracture Assessment/Plan: POD#0 ORIF right olecranon fracture Pain control PT evaluation tomorrow Patient will likely need rehab (5) Hypotension Assessment/Plan: Resolved with IVFs Will consider restarting antihypertensives tomorrow (6) Afib Assessment/Plan: Hx of Afib, but Pt in NSR on Amiodarone, which will be continued - Current Meds Current Meds: Current Medications Generic Name Dose Route Start Last Admin Trade Name Freq PRN Reason Stop Dose Admin Albuterol/Ipratropium 3 ml 05/27/17 11:16 05/27/17 11:30 Duoneb INH 3 ml Q4HR PRN Administration Wheezing Amiodarone HCl 200 mg 05/26/17 09:00 05/27/17 09:18 Pacerone PO Not Given DAILY RAFA Hydromorphone HCl 1 mg 05/25/17 17:20 05/27/17 06:13 Dilaudid Inj Syringe IVP 1 mg Q2HR PRN Administration Pain 8 to 10 Sodium Chloride 1,000 mls @ 100 mls/hr 05/25/17 18:00 05/27/17 12:30 Normal Saline 0.9% IV Infused .Q10H RAFA Infusion Lorazepam 0.5 mg 05/25/17 18:51 05/26/17 05:55 Ativan PO 0.5 mg Q6H PRN Administration Anxiety Nicotine 1 patch 05/25/17 19:00 05/27/17 09:19 Nicoderm TOP Not Given DAILY RAFA Oxycodone HCl 5 mg 05/25/17 17:20 05/27/17 01:38 Roxicodone PO 5 mg Q4HR PRN Administration Pain 5 to 7 Pantoprazole Sodium 40 mg 05/25/17 21:00 05/27/17 09:19 Protonix IVP Not Given BID RAFA Sodium Chloride 10 ml 05/25/17 22:00 05/27/17 13:54 Normal Saline Flush 0.9% IVP Not Given Q8HR RAFA Sodium Chloride 10 ml 05/25/17 17:20 05/25/17 19:37 Normal Saline Flush 0.9% IVP 10 ml PRN PRN Administration NEEDED PER PROVIDER ORDERS Thiamine HCl 100 mg 05/26/17 09:00 05/27/17 09:20 Vitamin B-1 PO Not Given DAILY RAFA - Lab Result Lab results reviewed: Yes Fish Bone Diagrams: 05/27/17 05:09 05/27/17 05:09 - Diagnostic Imaging Results Diagnostic Imaging Results: Final report reviewed - Additional Planning Condition/Complexity: Guarded My Orders: My Active Orders 05/27/17 11:16 Nebulizer/MDI Tx. [RC] QID Ipratropium/Albuterol [Duoneb] 3 ml INH Q4HR PRN Consult/Specialty: PT, Other (Ortho) Plan Discussed with:: Patient Time Spent: 31-60 minutes Subjective - Subjective Patient Reports: Pain (Right hip and right arm), Other (No fevers or chills overnight, no dizziness) Objective Vital Signs: Vital Signs - 24 hr 05/26/17 05/26/17 05/26/17 17:00 18:15 19:00 Temperature Heart Rate Heart Rate [ 78 80 79 Monitoring electrodes] Respiratory 14 14 12 Rate Blood Pressure 119/81 H 125/70 112/65 [Brachial artery] O2 Saturation 100 100 100 05/26/17 05/26/17 05/26/17 19:39 20:00 21:00 Temperature 37.0 C Heart Rate Heart Rate [ 78 78 76 Monitoring electrodes] Respiratory 17 16 16 Rate Blood Pressure 117/64 107/63 124/70 [Brachial artery] O2 Saturation 99 98 98 05/26/17 05/26/17 05/27/17 22:00 23:00 00:00 Temperature 36.6 C Heart Rate Heart Rate [ 75 76 84 Monitoring electrodes] Respiratory 13 14 20 Rate Blood Pressure 110/60 137/73 H 115/69 [Brachial artery] O2 Saturation 99 99 98 05/27/17 05/27/17 05/27/17 01:00 02:00 03:00 Temperature Heart Rate Heart Rate [ 80 81 80 Monitoring electrodes] Respiratory 15 19 16 Rate Blood Pressure 121/66 130/70 131/65 H [Brachial artery] O2 Saturation 99 99 99 05/27/17 05/27/17 05/27/17 04:00 05:00 06:00 Temperature 36.7 C Heart Rate Heart Rate [ 85 84 83 Monitoring electrodes] Respiratory 15 21 21 Rate Blood Pressure 131/71 H 133/73 H 151/75 H [Brachial artery] O2 Saturation 99 99 98 05/27/17 05/27/17 05/27/17 07:00 08:00 09:00 Temperature 36.6 C Heart Rate Heart Rate [ 83 82 81 Monitoring electrodes] Respiratory 14 16 15 Rate Blood Pressure 132/77 H 147/76 H 134/75 H [Brachial artery] O2 Saturation 98 97 98 05/27/17 05/27/17 05/27/17 10:00 11:00 11:30 Temperature Heart Rate 78 Heart Rate [ 80 80 Monitoring electrodes] Respiratory 17 16 11 L Rate Blood Pressure 136/75 H 149/84 H [Brachial artery] O2 Saturation 99 98 05/27/17 05/27/17 05/27/17 12:00 15:29 15:30 Temperature 37.2 C Heart Rate Heart Rate [ 84 Monitoring electrodes] Respiratory 20 Rate Blood Pressure 143/73 H [Brachial artery] O2 Saturation 97 100 100 05/27/17 05/27/17 05/27/17 15:35 15:40 15:45 Temperature Heart Rate Heart Rate [ Monitoring electrodes] Respiratory Rate Blood Pressure [Brachial artery] O2 Saturation 100 100 100 05/27/17 05/27/17 05/27/17 15:50 15:55 16:01 Temperature Heart Rate Heart Rate [ Monitoring electrodes] Respiratory Rate Blood Pressure [Brachial artery] O2 Saturation 100 100 93 05/27/17 05/27/17 05/27/17 16:06 16:16 16:43 Temperature 36.6 C Heart Rate Heart Rate [ 96 Monitoring electrodes] Respiratory 14 Rate Blood Pressure 146/86 H [Brachial artery] O2 Saturation 100 97 95 Oxygen O2 Source Room air I&O (Last 24 Hrs): Intake and Output Totals x24h 05/25/17 05/26/17 05/27/17 23:59 23:59 23:59 Intake Total 3886.2 2520 3366 Output Total 563 747 375 Balance 3323.2 1773 2991 General: Alert, Oriented x3, Other (slight tremor) HEENT: PERRLA, EOMI, Mucous membr. moist/pink Neck: Supple, No JVD, No thyromegaly, +2 carotid pulse wo bruit, No LAD Lymphatic: no adenopathy Neuro: Alert, Non Focal, CN 2-12 Grossly Intact, Oriented Times 3 Cardiovascular: Regular rate, Normal S1, Normal S2, No murmurs Respiratory: Chest non-tender, No respiratory distress, Breath sounds nml Abdomen: Normal bowel sounds, Soft, No tenderness, No hepatospenomegaly Extremities: Other (Right arm in a sling, right hip with limited ROM secondary to pain) Skin: No rashes, No breakdown - Results Results: Laboratory Results WBC 12.0 x10^3/uL (4.8-10.8) H 05/27/17 05:09 RBC 2.58 10^6/uL (4.20-5.40) L 05/27/17 05:09 Hgb 11.4 g/dL (12.0-16.0) L 05/27/17 05:09 Hct 32.5 % (37.0-47.0) L 05/27/17 05:09 MCV 125.9 fL (81.0-99.0) H 05/27/17 05:09 MCH 44.1 pg (27.0-31.0) H 05/27/17 05:09 MCHC 35.0 g/dL (32.0-36.0) 05/27/17 05:09 RDW 13.6 % (12.0-15.0) 05/27/17 05:09 Plt Count 165 10^3/uL (130-450) 05/27/17 05:09 MPV 7.9 fL (7.9-10.8) 05/27/17 05:09 Neut # 10.0 10^3/uL (1.5-6.6) H 05/27/17 05:09 Lymph # 0.9 10^3/uL (1.5-3.5) L 05/27/17 05:09 Wallace # 0.9 10^3/uL (0.0-1.0) 05/27/17 05:09 Eos # 0.0 10^3/uL (0.0-0.7) 05/27/17 05:09 Baso # 0.0 10^3/uL (0.0-0.1) 05/27/17 05:09 Absolute Nucleated RBC 0.00 x10^3/uL 05/27/17 05:09 Nucleated RBC % 0.0 /100WBC 05/27/17 05:09 Manual Slide Review Indicated 05/27/17 05:09 Platelet Estimate NORMAL (130-450,000) (NORMAL) 05/27/17 05:09 Platelet Morphology NORMAL APPEARANCE (NORMAL) 05/27/17 05:09 RBC Morph Micro Appear NORMAL APPEARANCE (NORMAL) 05/27/17 05:09 PT 10.8 secs (9.9-12.6) 05/25/17 15:11 INR 1.0 (0.8-1.2) 05/25/17 15:11 Sodium 130 mmol/L (135-145) L 05/27/17 05:09 Potassium 4.0 mmol/L (3.5-5.0) 05/27/17 05:09 Chloride 101 mmol/L (101-111) 05/27/17 05:09 Carbon Dioxide 22 mmol/L (21-32) 05/27/17 05:09 Anion Gap 7.0 (6-13) 05/27/17 05:09 BUN 7 mg/dL (6-20) 05/27/17 05:09 Creatinine 0.7 mg/dL (0.4-1.0) 05/27/17 05:09 Estimated GFR (MDRD) 83 (>89) L 05/27/17 05:09 Glucose 106 mg/dL (70-100) H 05/27/17 05:09 Calcium 8.0 mg/dL (8.5-10.3) L 05/27/17 05:09 Phosphorus 2.1 mg/dL (2.5-4.6) L 05/27/17 05:09 Magnesium 1.5 mg/dL (1.7-2.8) L 05/27/17 05:09 Total Bilirubin 0.7 mg/dL (0.2-1.0) 05/27/17 05:09 Direct Bilirubin 0.1 mg/dL (0.1-0.5) 05/27/17 05:09 AST 29 IU/L (10-42) 05/27/17 05:09 ALT 22 IU/L (10-60) 05/27/17 05:09 Alkaline Phosphatase 98 IU/L (42-121) 05/27/17 05:09 Total Protein 5.0 g/dL (6.7-8.2) L 05/27/17 05:09 Albumin 2.8 g/dL (3.2-5.5) L 05/27/17 05:09 Globulin 2.2 g/dL (2.1-4.2) 05/27/17 05:09 Albumin/Globulin Ratio 1.3 (1.0-2.2) 05/25/17 15:11 Lipase 36 U/L (22-51) 05/25/17 15:11 Ethyl Alcohol < 5.0 mg/dL 05/25/17 15:11 Blood Type O POSITIVE 05/25/17 15:11 Antibody Screen NEGATIVE 05/25/17 15:11
[2017-05-27] MEDS: SODIUM CHLORIDE FLUSH 0.9% 10 ML SYRINGE IVP PRN (17:41)
[2017-05-27] MEDS: ASPIRIN 325 MG TABLET PO SCH (17:42)
[2017-05-27] MEDS: ceFAZolin 2 GM/50 ML 2 GM/50 ML BAG IV SCH (17:42)
[2017-05-27] MEDS: ENOXAPARIN 40 MG/0.4 ML SYRINGE SUBQ SCH (17:43)
--- NOTE | 2017-05-27 18:03 | XRAY Preliminary Report ---
Exam: XR Hip w/Pelvis 2-3V RT IMPRESSION: Unremarkable postoperative exam. [facility] SITE ID: [id number]
--- NOTE | 2017-05-27 18:15 | XRAY Report ---
EXAM: RIGHT HIP AND PELVIS RADIOGRAPHY EXAM DATE: 05/27/2017 05:37 PM. HISTORY: Post op. Right hip fracture. COMPARISONS: 05/25/2017. TECHNIQUE: 1 view of the pelvis and 1 view of the hip. FINDINGS: Bones: No unexpected bony abnormality. Joints: Bones in anatomic alignment. Immediately status post right total hip replacement. Single cerclage wire proximal femoral metadiaphy sis. Moderate degenerative changes lower lumbar spine. Soft Tissues: Air and edema of the operative site. IMPRESSION: Unremarkable postoperative exam. [facility] Referring Provider Line: [phone] SITE ID: [id number]
--- NOTE | 2017-05-27 19:05 | OPERATIVE REPORT ---
DATE OF SURGERY: 05/27/2017 00:00:00 PREOPERATIVE DIAGNOSIS: Right displaced, closed olecranon fracture and right femoral neck displaced fracture. POSTOPERATIVE DIAGNOSIS: Right displaced, closed olecranon fracture and right femoral neck displaced fracture. NAME OF PROCEDURE: Right olecranon open reduction and internal fixation, and right cemented bipolar hip replacement. SURGEON: Mirela Ledezma MD ANESTHESIA: General. INDICATIONS FOR SURGERY: The patient is a 67-year-old female who suffered a ground-level fall, fractu ring her right elbow and her right femoral neck. The patient had a delay in surgery because of hypona tremia and other medical conditions, but was deemed stable for surgery today. The patient complained of essentially immobility and pain in both of these areas. She had not previously had hip arthritis. FINDINGS AT SURGERY: The patient's femoral neck was fractured very low at the base of the neck, with some comminution and small fracture lines directed towards the femur. The patient's cup was in good c ondition, with no arthritis. The patient's elbow showed comminution, but there was a small amount of fragmentation and a preserved articular surface. DESCRIPTION OF OPERATIVE PROCEDURE: The patient was taken to the operating room. She was placed in th e supine position and given a general anesthetic. She was then positioned left lateral decubitus, sup ported by a post, and her hip was sterilely prepped and draped in the standard fashion. The patient's approach was a posterior hip approach through the skin and subcutaneous tissue, dividing short rotat ors and exposing the underlying hip capsule, which was incised. The patient's femoral head was remove d, and the femur was then exposed and prepared for broaching. A cerclage cable was placed around the proximal femur to prevent any propagation of pre-existing fracture lines. The broaching was taken up to accommodate a 9 stem, and this equated to a size 7 echo-cemented stem. The appropriate height of t he stem was judged from the bone, the length of the bone relative to the cup, and the offset of the t rochanter. Ultimately, a size 7 echo stem was cemented in place. The cup was a -3 neck, 43 mm outer d iameter bipolar cup with a 28 mm head. This was assembled and inserted. The patient's limb length had been restored, and the stability was excellent. The wound was irrigated and closed with a FiberWire closure of the tensor fascia, Vicryl closure of the subcutaneous tissue, and Monocryl closure of the skin. Dressings were applied to the hip. Attention was then directed to the upper extremity, where a re-draping occurred, and a prep and drape of the elbow. The patient's olecranon was approached under tourniquet control, with a longitudinal i ncision over the olecranon and a careful dissection down to the fractured bone, which was irrigated f ree of clot. The fracture was reduced with a tenaculum clamp and 2 mm K-wires. Two in number were dri tara across the fracture site with the bone held anatomic. A cerclage of 18-gauge stainless steel was used in a tension band manner, which stabilized the fracture. The pins were bent, cut, and driven sea eath the level of the triceps insertion, and C-arm images confirmed reduction and placement of the im plants. Closure was then undertaken after irrigating and closing with a Vicryl interrupted closure chavez bcutaneous and Monocryl closure of skin, with sterile dressings applied. The patient was fitted in a posterior arm splint and taken to the recovery room in stable condition. ESTIMATED BLOOD LOSS: Approximately 100 mL for the hip and another 50 mL for the elbow. COMPLICATIONS: There were no complications. JOB #: [id number] JOB #:[id number]
[2017-05-27] MEDS: BUDESONIDE 0.5 MG/2 ML NEB INH SCH (20:48)
[2017-05-27] MEDS: FLUoxetine 10 MG CAPSULE PO SCH (21:53)
[2017-05-28] MEDS: ceFAZolin 2 GM/50 ML 2 GM/50 ML BAG IV SCH (00:14)
[2017-05-28] MEDS: HYDROmorphone 1 MG/ML SYRINGE IVP PRN ×4 (00:23→23:54)
[2017-05-28] MEDS: SODIUM CHLORIDE FLUSH 0.9% 10 ML SYRINGE IVP PRN ×4 (00:23→23:55)
[2017-05-28 05:12] LABS: HCT - HEMATOCRIT 28.4 % (37.0-47.0); HGB - HEMOGLOBIN 9.7 g/dL (12.0-16.0)
[2017-05-28] MEDS: HYDROcod/ACETAM 5/325 MG TABLET PO PRN ×2 (05:18→20:50)
[2017-05-28] MEDS: SODIUM CHLORIDE 0.9% 1,000 ML IV SCH ×2 (05:18→16:27)
[2017-05-28 05:21] LABS: ALBUMIN/GLOBULIN RATIO 1.1 (1.0-2.2); BILIRUBIN,TOTAL 0.5 mg/dL (0.2-1.0); CALCIUM 7.7 mg/dL (8.5-10.3); CREATININE 0.7 mg/dL (0.4-1.0); MAGNESIUM 1.7 mg/dL (1.7-2.8); PHOSPHORUS 3.1 mg/dL (2.5-4.6); POTASSIUM 4.2 mmol/L (3.5-5.0); TOTAL PROTEIN 4.8 g/dL (6.7-8.2)
[2017-05-28] MEDS: SODIUM CHLORIDE FLUSH 0.9% 10 ML SYRINGE IVP SCH ×3 (05:45→20:51)
--- NOTE | 2017-05-28 07:10 | PROVIDER PROGRESS NOTE ---
Subjective - General Admit Date: 05/25/17 Procedure Date: 05/27/17 Post Op Days: 1 Procedure Performed: Right Olecranon ORIF, Right Hip Hemiarthroplasty - Review of Systems Wound/Incisions: positive: Dressing dry and intact General: positive: Fatigue Musculoskeletal: positive: Joint pain Psychiatric: positive: No symptoms Objective - Patient Data Reviewed Vital Signs: Yes Vital Signs: Vital Signs x48h Temp Pulse Resp BP Pulse Ox 05/28/17 04:06 36.7 C 95 18 132/69 H 96 05/28/17 00:24 36.9 C 89 18 132/64 H 92 Weight: Weight 05/26/17 05/27/17 05/28/17 23:59 23:59 23:59 Weight (kg) 56 kg 58.5 kg 59 kg Intake & Output: Intake and Output Totals x24h 05/26/17 05/27/17 05/28/17 23:59 23:59 23:59 Intake Total 2520 4516 1300 Output Total 747 700 300 Balance 1773 3816 1000 - Lab Results Lab Results: 05/28/17 04:38 05/28/17 04:38 Other Lab Results: Lab Results x24hrs 05/28/17 05/28/17 Range/Units 04:38 04:38 Hgb 9.7 L (12.0-16.0) g/dL Hct 28.4 L (37.0-47.0) % Sodium 130 L (135-145) mmol/L Potassium 4.2 (3.5-5.0) mmol/L Chloride 101 (101-111) mmol/L Carbon Dioxide 20 L (21-32) mmol/L Anion Gap 9.0 (6-13) BUN 8 (6-20) mg/dL Creatinine 0.7 (0.4-1.0) mg/dL Estimated GFR (MDRD) 83 L (>89) Glucose 124 H (70-100) mg/dL Calcium 7.7 L (8.5-10.3) mg/dL Phosphorus 3.1 (2.5-4.6) mg/dL Magnesium 1.7 (1.7-2.8) mg/dL Total Bilirubin 0.5 (0.2-1.0) mg/dL AST 34 (10-42) IU/L ALT 18 (10-60) IU/L Alkaline Phosphatase 85 (42-121) IU/L Total Protein 4.8 L (6.7-8.2) g/dL Albumin 2.5 L (3.2-5.5) g/dL Globulin 2.3 (2.1-4.2) g/dL Albumin/Globulin Ratio 1.1 (1.0-2.2) - Imaging Results Radiology Imaging: positive: EMP read indepedently - Current Medications Current Medications: Current Medications Generic Name Dose Route Start Last Admin Trade Name Freq PRN Reason Stop Dose Admin Acetaminophen/Hydrocodone Bitart 1 tab 05/27/17 15:25 05/28/17 05:18 [place] 5/325 PO 1 tab Q4HR PRN Administration PAIN Albuterol/Ipratropium 3 ml 05/27/17 11:16 05/27/17 20:48 Duoneb INH 3 ml Q4HR PRN Administration Wheezing Amiodarone HCl 200 mg 05/26/17 09:00 05/27/17 09:18 Pacerone PO Not Given DAILY RAFA Aspirin 325 mg 05/27/17 17:00 05/27/17 17:42 Sky PO 325 mg BIDWM RAFA Administration Budesonide 0.5 mg 05/27/17 21:00 05/27/17 20:48 Pulmicort INH 0.5 mg RTBID RAFA Administration Enoxaparin Sodium 40 mg 05/27/17 18:00 05/27/17 17:43 Lovenox SUBQ 40 mg DAILY RAFA Administration Fluoxetine HCl 20 mg 05/27/17 21:00 05/27/17 21:53 Prozac PO 20 mg 2100 RAFA Administration Hydromorphone HCl 1 mg 05/25/17 17:20 05/28/17 00:23 Dilaudid Inj Syringe IVP 1 mg Q2HR PRN Administration Pain 8 to 10 Sodium Chloride 1,000 mls @ 100 mls/hr 05/25/17 18:00 05/28/17 05:18 Normal Saline 0.9% IV 100 mls/hr .Q10H RAFA Administration Lorazepam 0.5 mg 05/25/17 18:51 05/26/17 05:55 Ativan PO 0.5 mg Q6H PRN Administration Anxiety Nicotine 1 patch 05/25/17 19:00 05/27/17 09:19 Nicoderm TOP Not Given DAILY RAFA Oxycodone HCl 5 mg 05/25/17 17:20 05/27/17 01:38 Roxicodone PO 5 mg Q4HR PRN Administration Pain 5 to 7 Pantoprazole Sodium 40 mg 05/25/17 21:00 05/27/17 21:53 Protonix IVP 40 mg BID RAFA Administration Sodium Chloride 10 ml 05/25/17 22:00 05/28/17 05:45 Normal Saline Flush 0.9% IVP Not Given Q8HR RAFA Sodium Chloride 10 ml 05/25/17 17:20 05/28/17 00:23 Normal Saline Flush 0.9% IVP 10 ml PRN PRN Administration NEEDED PER PROVIDER ORDERS Thiamine HCl 100 mg 05/26/17 09:00 05/27/17 09:20 Vitamin B-1 PO Not Given DAILY RAFA - Physical Exam Wound/Incisions: positive: Healing well General Appearance: positive: No acute distress Skin: positive: No rash Extremities: positive: Joint swelling Neurologic/Psychiatric: positive: Motor nml, Sensation nml, Mood/affect nml Impression/Plan - Problem List Problem List: POD #1 Pt is more comfortable than preop and sitting in a chair. Pain is lessened. Dressing/splint intact. Plan for PT mobilization SNF plans to be made.
[2017-05-28] MEDS: BUDESONIDE 0.5 MG/2 ML NEB INH SCH ×2 (07:40→19:45)
[2017-05-28] MEDS: IPRATROPIUM/ALBUTEROL 3 ML NEB INH PRN ×2 (07:40→19:45)
[2017-05-28] MEDS: ASPIRIN 325 MG TABLET PO SCH ×2 (08:41→16:32)
[2017-05-28] MEDS: TRIAMT/HCTZ 37.5 MG/25 MG CAPSULE PO SCH (08:41)
[2017-05-28] MEDS: AMIODARONE 200 MG TABLET PO SCH (08:41)
[2017-05-28] MEDS: CARVEDILOL 12.5 MG TABLET PO SCH (08:41)
[2017-05-28] MEDS: THIAMINE 100 MG TABLET PO SCH (08:42)
[2017-05-28] MEDS: PANTOPRAZOLE 40 MG VIAL IVP SCH ×2 (08:42→20:50)
[2017-05-28] MEDS: ENOXAPARIN 40 MG/0.4 ML SYRINGE SUBQ SCH (08:43)
[2017-05-28] MEDS: NICOTINE 7 MG PATCH TOP SCH ×2 (08:43→08:44)
[2017-05-28] MEDS: oxyCODONE 5 MG TABLET PO PRN (10:27)
--- NOTE | 2017-05-28 13:01 | CONSULTATION NOTE ---
DATE OF CONSULTATION: 05/27/2017 00:00:00 REQUESTING PROVIDER: Rick Carver MD REASON FOR CONSULTATION: Right hip and right elbow injury. HISTORY OF PRESENT ILLNESS: This is a 67-year-old female who suffered a ground-level fall. She was ta jannette garbage out to the garbage can, fell down and injured her hip and elbow on pavement, suffering f ractures in each of these areas. She was admitted through the emergency room to medical care. Her dileep or medical history is documented in her admission notes. PHYSICAL EXAMINATION GENERAL: Physical exam remarkable for a thin and frail elderly female with a splint on her right elbo w, who was in bed and painful when moved. She is, however, alert and is oriented. EXTREMITIES: She has right elbow splinted, with swelling of her hand and mild abrasions on her dorsal hand. The elbow is reported to have abrasions on the elbow, but all superficial. Her limb is neurova scularly intact. The patient's right hip shows foreshortening and external rotation of the limb, swel ling of the hip area with intact skin at the hip, but frail and discolored skin in the distal leg, lo ngstanding. The patient does not have edema in her leg and is neurovascularly intact. The other limbs do not show injury, and the patient is able to move left lower extremity, left upper extremity witho ut any pain. X-rays reveal a displaced right olecranon fracture and a comminuted low right femoral neck fracture i n a hip that does not have evidence of previous hip arthritis. PLAN: Patient to be stabilized for medical and surgical care, which includes open reduction internal fixation of her right olecranon fracture and bipolar replacement of her right hip to be done as soon as feasible. JOB #: [id number] EXT JOB #:[id number]
--- NOTE | 2017-05-28 13:52 | PROVIDER PROGRESS NOTE ---
Assessment/Plan - Problem List (1) Hyponatremia Assessment/Plan: Resolving Na stable at 130 today Continue IVFs as patient is post op Monitor Na We maybe close to patients baseline at this point (2) Alcohol abuse Assessment/Plan: History of alcohol abuse CIWA score is low will stop CIWA protocol (3) Fracture, intertrochanteric, right femur Qualifiers: Encounter type: initial encounter Fracture type: closed Fracture alignment: displaced Qualified Code(s): S72.141A - Displaced intertrochanteric fracture of right femur, initial encounter for closed fracture Assessment/Plan: POD#1 Bipolar replacement right hip Pain controlled PT evaluation today Patient will likely need rehab Started DVT prophylaxis post op (4) Right Olecranon Fracture Assessment/Plan: POD#1 ORIF right olecranon fracture Pain controlled PT evaluation today Patient will likely need rehab (5) Hypotension Assessment/Plan: Hypotensive again today possibly secondary to dehydration after major surgery vs secondary to blood loss Check H&H Give IVF bolus Monitor closely (6) Afib Assessment/Plan: Hx of Afib, but Pt in NSR on Amiodarone, which will be continued - Current Meds Current Meds: Current Medications Generic Name Dose Route Start Last Admin Trade Name Freq PRN Reason Stop Dose Admin Acetaminophen/Hydrocodone Bitart 1 tab 05/27/17 15:25 05/28/17 05:18 [place] 5/325 PO 1 tab Q4HR PRN Administration PAIN Albuterol/Ipratropium 3 ml 05/27/17 11:16 05/28/17 07:40 Duoneb INH 3 ml Q4HR PRN Administration Wheezing Amiodarone HCl 200 mg 05/26/17 09:00 05/28/17 08:41 Pacerone PO 200 mg DAILY RAFA Administration Aspirin 325 mg 05/27/17 17:00 05/28/17 08:41 Sky PO 325 mg BIDWM RAFA Administration Budesonide 0.5 mg 05/27/17 21:00 05/28/17 07:40 Pulmicort INH 0.5 mg RTBID RAFA Administration Carvedilol 12.5 mg 05/28/17 09:00 05/28/17 08:41 Coreg PO 12.5 mg DAILY RAFA Administration Enoxaparin Sodium 40 mg 05/27/17 18:00 05/28/17 08:43 Lovenox SUBQ 40 mg DAILY RAFA Administration Fluoxetine HCl 20 mg 05/27/17 21:00 05/27/17 21:53 Prozac PO 20 mg 2100 RAFA Administration Hydromorphone HCl 1 mg 05/25/17 17:20 05/28/17 10:30 Dilaudid Inj Syringe IVP 1 mg Q2HR PRN Administration Pain 8 to 10 Sodium Chloride 1,000 mls @ 100 mls/hr 05/25/17 18:00 05/28/17 05:18 Normal Saline 0.9% IV 100 mls/hr .Q10H RAFA Administration Lorazepam 0.5 mg 05/25/17 18:51 05/26/17 05:55 Ativan PO 0.5 mg Q6H PRN Administration Anxiety Nicotine 1 patch 05/25/17 19:00 05/28/17 08:44 Nicoderm TOP Not Given DAILY RAFA Oxycodone HCl 5 mg 05/25/17 17:20 05/28/17 10:27 Roxicodone PO 5 mg Q4HR PRN Administration Pain 5 to 7 Pantoprazole Sodium 40 mg 05/25/17 21:00 05/28/17 08:42 Protonix IVP 40 mg BID RAFA Administration Sodium Chloride 10 ml 05/25/17 22:00 05/28/17 12:50 Normal Saline Flush 0.9% IVP Not Given Q8HR RAFA Sodium Chloride 10 ml 05/25/17 17:20 05/28/17 08:43 Normal Saline Flush 0.9% IVP 10 ml PRN PRN Administration NEEDED PER PROVIDER ORDERS Thiamine HCl 100 mg 05/26/17 09:00 05/28/17 08:42 Vitamin B-1 PO 100 mg DAILY RAFA Administration Triamterene/HCTZ 1 cap 05/28/17 09:00 05/28/17 08:41 Dyazide PO 1 cap DAILY RAFA Administration - Lab Result Fish Bone Diagrams: 05/28/17 04:38 05/28/17 04:38 - Diagnostic Imaging Results Diagnostic Imaging Results: Final report reviewed - Additional Planning Condition/Complexity: Guarded My Orders: My Active Orders 05/27/17 18:00 Enoxaparin [Lovenox] 40 mg SUBQ DAILY Consult/Specialty: PT, Other (Ortho) Plan Discussed with:: Patient Time Spent: 31-60 minutes Subjective - Subjective Patient Reports: Pain (Patient still has pain in the right hip but states it is better than before the surgery.), Other (She denies any fevers, dizziness or difficulty breathing) Nursing Reports: No Complaints Objective Vital Signs: Vital Signs - 24 hr 05/27/17 05/27/17 05/27/17 15:29 15:30 15:35 Temperature Heart Rate Heart Rate [ Brachial] Heart Rate [ Monitoring electrodes] Respiratory Rate Blood Pressure [Brachial artery] Blood Pressure [Left Brachial artery] O2 Saturation 100 100 100 05/27/17 05/27/17 05/27/17 15:40 15:45 15:50 Temperature Heart Rate Heart Rate [ Brachial] Heart Rate [ Monitoring electrodes] Respiratory Rate Blood Pressure [Brachial artery] Blood Pressure [Left Brachial artery] O2 Saturation 100 100 100 05/27/17 05/27/17 05/27/17 15:55 16:01 16:06 Temperature Heart Rate Heart Rate [ Brachial] Heart Rate [ Monitoring electrodes] Respiratory Rate Blood Pressure [Brachial artery] Blood Pressure [Left Brachial artery] O2 Saturation 100 93 100 05/27/17 05/27/17 05/27/17 16:16 16:43 17:45 Temperature 36.6 C 36.6 C Heart Rate Heart Rate [ Brachial] Heart Rate [ 96 87 Monitoring electrodes] Respiratory 14 16 Rate Blood Pressure 146/86 H [Brachial artery] Blood Pressure 147/66 H [Left Brachial artery] O2 Saturation 97 95 95 05/27/17 05/27/17 05/27/17 18:45 19:59 20:49 Temperature 36.6 C 36.8 C Heart Rate 94 Heart Rate [ 96 91 Brachial] Heart Rate [ Monitoring electrodes] Respiratory 20 16 16 Rate Blood Pressure 119/55 L [Brachial artery] Blood Pressure 120/57 L [Left Brachial artery] O2 Saturation 93 95 05/28/17 05/28/17 05/28/17 00:24 04:06 07:40 Temperature 36.9 C 36.7 C Heart Rate 83 Heart Rate [ 89 95 Brachial] Heart Rate [ Monitoring electrodes] Respiratory 18 18 18 Rate Blood Pressure [Brachial artery] Blood Pressure 132/64 H 132/69 H [Left Brachial artery] O2 Saturation 92 96 05/28/17 05/28/17 08:07 13:00 Temperature 36.9 C 36.9 C Heart Rate Heart Rate [ 89 74 Brachial] Heart Rate [ Monitoring electrodes] Respiratory 18 18 Rate Blood Pressure [Brachial artery] Blood Pressure 135/65 H 89/50 L [Left Brachial artery] O2 Saturation 100 92 Oxygen O2 Source Room air I&O (Last 24 Hrs): Intake and Output Totals x24h 05/26/17 05/27/17 05/28/17 23:59 23:59 23:59 Intake Total 2520 4516 2660 Output Total 747 700 550 Balance 1773 3816 2110 General: Alert, Oriented x3, Cooperative, Mild distress (pain) HEENT: Atraumatic, PERRLA, EOMI, Other (dry) Neck: Supple, No JVD, No thyromegaly, +2 carotid pulse wo bruit, No LAD Lymphatic: no adenopathy Neuro: Alert, Non Focal, CN 2-12 Grossly Intact, Oriented Times 3 Cardiovascular: Regular rate, Normal S1, Normal S2, No murmurs Respiratory: Chest non-tender, No respiratory distress, Rales (bases, mild) Abdomen: Normal bowel sounds, Soft, No tenderness, No hepatospenomegaly Extremities: No clubbing, No cyanosis, No edema, Normal pulses, Other (Right hip post op is swollen but surgical site looks clean) Skin: No rashes, No breakdown - Results Results: Laboratory Results WBC 12.0 x10^3/uL (4.8-10.8) H 05/27/17 05:09 RBC 2.58 10^6/uL (4.20-5.40) L 05/27/17 05:09 Hgb 9.7 g/dL (12.0-16.0) L 05/28/17 04:38 Hct 28.4 % (37.0-47.0) L 05/28/17 04:38 MCV 125.9 fL (81.0-99.0) H 05/27/17 05:09 MCH 44.1 pg (27.0-31.0) H 05/27/17 05:09 MCHC 35.0 g/dL (32.0-36.0) 05/27/17 05:09 RDW 13.6 % (12.0-15.0) 05/27/17 05:09 Plt Count 165 10^3/uL (130-450) 05/27/17 05:09 MPV 7.9 fL (7.9-10.8) 05/27/17 05:09 Neut # 10.0 10^3/uL (1.5-6.6) H 05/27/17 05:09 Lymph # 0.9 10^3/uL (1.5-3.5) L 05/27/17 05:09 Walker # 0.9 10^3/uL (0.0-1.0) 05/27/17 05:09 Eos # 0.0 10^3/uL (0.0-0.7) 05/27/17 05:09 Baso # 0.0 10^3/uL (0.0-0.1) 05/27/17 05:09 Absolute Nucleated RBC 0.00 x10^3/uL 05/27/17 05:09 Nucleated RBC % 0.0 /100WBC 05/27/17 05:09 Manual Slide Review Indicated 05/27/17 05:09 Platelet Estimate NORMAL (130-450,000) (NORMAL) 05/27/17 05:09 Platelet Morphology NORMAL APPEARANCE (NORMAL) 05/27/17 05:09 RBC Morph Micro Appear NORMAL APPEARANCE (NORMAL) 05/27/17 05:09 PT 10.8 secs (9.9-12.6) 05/25/17 15:11 INR 1.0 (0.8-1.2) 05/25/17 15:11 Sodium 130 mmol/L (135-145) L 05/28/17 04:38 Potassium 4.2 mmol/L (3.5-5.0) 05/28/17 04:38 Chloride 101 mmol/L (101-111) 05/28/17 04:38 Carbon Dioxide 20 mmol/L (21-32) L 05/28/17 04:38 Anion Gap 9.0 (6-13) 05/28/17 04:38 BUN 8 mg/dL (6-20) 05/28/17 04:38 Creatinine 0.7 mg/dL (0.4-1.0) 05/28/17 04:38 Estimated GFR (MDRD) 83 (>89) L 05/28/17 04:38 Glucose 124 mg/dL (70-100) H 05/28/17 04:38 Calcium 7.7 mg/dL (8.5-10.3) L 05/28/17 04:38 Phosphorus 3.1 mg/dL (2.5-4.6) 05/28/17 04:38 Magnesium 1.7 mg/dL (1.7-2.8) 05/28/17 04:38 Total Bilirubin 0.5 mg/dL (0.2-1.0) 05/28/17 04:38 Direct Bilirubin 0.1 mg/dL (0.1-0.5) 05/27/17 05:09 AST 34 IU/L (10-42) 05/28/17 04:38 ALT 18 IU/L (10-60) 05/28/17 04:38 Alkaline Phosphatase 85 IU/L (42-121) 05/28/17 04:38 Total Protein 4.8 g/dL (6.7-8.2) L 05/28/17 04:38 Albumin 2.5 g/dL (3.2-5.5) L 05/28/17 04:38 Globulin 2.3 g/dL (2.1-4.2) 05/28/17 04:38 Albumin/Globulin Ratio 1.1 (1.0-2.2) 05/28/17 04:38 Lipase 36 U/L (22-51) 05/25/17 15:11 Ethyl Alcohol < 5.0 mg/dL 05/25/17 15:11 Blood Type O POSITIVE 05/25/17 15:11 Antibody Screen NEGATIVE 05/25/17 15:11
[2017-05-28] MEDS ORDERED: SODIUM CHLORIDE 0.9% 1,000 ML IV ONE ×2 (14:08→14:16)
[2017-05-28 16:27] LABS: HCT - HEMATOCRIT 26.8 % (37.0-47.0); HGB - HEMOGLOBIN 9.1 g/dL (12.0-16.0)
[2017-05-28] MEDS: FLUoxetine 10 MG CAPSULE PO SCH (20:50)
[2017-05-29] MEDS: SODIUM CHLORIDE 0.9% 1,000 ML IV SCH ×3 (02:06→23:59)
[2017-05-29] MEDS: SODIUM CHLORIDE FLUSH 0.9% 10 ML SYRINGE IVP SCH ×3 (02:09→20:30)
[2017-05-29] MEDS: HYDROcod/ACETAM 5/325 MG TABLET PO PRN ×4 (05:47→23:58)
[2017-05-29 06:06] LABS: HCT - HEMATOCRIT 27.9 % (37.0-47.0); HGB - HEMOGLOBIN 9.5 g/dL (12.0-16.0); MEAN CORPUSCULAR HEMOGLOBIN 43.2 pg (27.0-31.0); MEAN CORPUSCULAR VOLUME 127.2 fL (81.0-99.0); MEAN PLATELET VOLUME 7.9 fL (7.9-10.8); RED BLOOD COUNT 2.2 10^6/uL (4.20-5.40); RED CELL DISTRIBUTION WIDTH 13.7 % (12.0-15.0); WHITE BLOOD COUNT 15.1 x10^3/uL (4.8-10.8)
[2017-05-29 06:12] LABS: ALBUMIN/GLOBULIN RATIO 1.1 (1.0-2.2); BILIRUBIN,TOTAL 0.5 mg/dL (0.2-1.0); BUN - BLOOD UREA NITROGEN 8 mg/dL (6-20); CALCIUM 7.9 mg/dL (8.5-10.3); CARBON DIOXIDE - CO2 21 mmol/L (21-32); CHLORIDE 104 mmol/L (101-111); CREATININE 0.7 mg/dL (0.4-1.0); GFR - MDRD 83 (>89); GLUCOSE 96 mg/dL (70-100); SODIUM 132 mmol/L (135-145); TOTAL PROTEIN 4.5 g/dL (6.7-8.2)
[2017-05-29 06:17] LABS: MAGNESIUM 1.6 mg/dL (1.7-2.8); PHOSPHORUS 2.7 mg/dL (2.5-4.6)
[2017-05-29 06:18] LABS: CALCIUM, IONIZED 1.11 mmol/L (1.15-1.33); VBG PH 7.288 (7.31-7.41)
--- NOTE | 2017-05-29 07:23 | PROVIDER PROGRESS NOTE ---
Subjective - General Admit Date: 05/25/17 Procedure Date: 05/27/17 Post Op Days: 2 Procedure Performed: Right Olecranon ORIF, Right Hip Hemiarthroplasty - Review of Systems Wound/Incisions: positive: Healing well General: positive: Fatigue Musculoskeletal: positive: Joint pain Psychiatric: positive: No symptoms Objective - Patient Data Reviewed Vital Signs: Yes Vital Signs: Vital Signs x48h Temp Pulse Resp BP Pulse Ox 05/29/17 04:17 36.5 C 89 16 145/65 H 96 05/29/17 00:26 36.6 C 82 18 134/70 H 95 Weight: Weight 05/27/17 05/28/17 05/29/17 23:59 23:59 23:59 Weight (kg) 58.5 kg 59 kg 61.5 kg Intake & Output: Intake and Output Totals x24h 05/27/17 05/28/17 05/29/17 23:59 23:59 23:59 Intake Total 4516 5210 1015 Output Total 700 1025 350 Balance 3816 4185 665 - Lab Results Lab Results: 05/29/17 05:21 05/29/17 05:21 Other Lab Results: Lab Results x24hrs 05/29/17 05/29/17 05/29/17 Range/Units 05:21 05:21 05:21 WBC 15.1 H (4.8-10.8) x10^3/uL RBC 2.20 L (4.20-5.40) 10^6/uL Hgb 9.5 L (12.0-16.0) g/dL Hct 27.9 L (37.0-47.0) % MCV 127.2 H (81.0-99.0) fL MCH 43.2 H (27.0-31.0) pg MCHC 34.0 (32.0-36.0) g/dL RDW 13.7 (12.0-15.0) % Plt Count 155 (130-450) 10^3/uL MPV 7.9 (7.9-10.8) fL VBG pH 7.288 L (7.31-7.41) Ionized Calcium 1.11 L YES (1.15-1.33) mmol/L Sodium 132 L (135-145) mmol/L Potassium 4.0 (3.5-5.0) mmol/L Chloride 104 (101-111) mmol/L Carbon Dioxide 21 (21-32) mmol/L Anion Gap 7.0 (6-13) BUN 8 (6-20) mg/dL Creatinine 0.7 (0.4-1.0) mg/dL Estimated GFR (MDRD) 83 L (>89) Glucose 96 (70-100) mg/dL Calcium 7.9 L (8.5-10.3) mg/dL Phosphorus (2.5-4.6) mg/dL Magnesium (1.7-2.8) mg/dL Total Bilirubin 0.5 (0.2-1.0) mg/dL AST 40 (10-42) IU/L ALT 15 (10-60) IU/L Alkaline Phosphatase 76 (42-121) IU/L Total Protein 4.5 L (6.7-8.2) g/dL Albumin 2.4 L (3.2-5.5) g/dL Globulin 2.1 (2.1-4.2) g/dL Albumin/Globulin Ratio 1.1 (1.0-2.2) 05/29/17 05/28/17 Range/Units 05:21 16:08 WBC (4.8-10.8) x10^3/uL RBC (4.20-5.40) 10^6/uL Hgb 9.1 L (12.0-16.0) g/dL Hct 26.8 L (37.0-47.0) % MCV (81.0-99.0) fL MCH (27.0-31.0) pg MCHC (32.0-36.0) g/dL RDW (12.0-15.0) % Plt Count (130-450) 10^3/uL MPV (7.9-10.8) fL VBG pH (7.31-7.41) Ionized Calcium (1.15-1.33) mmol/L Sodium (135-145) mmol/L Potassium (3.5-5.0) mmol/L Chloride (101-111) mmol/L Carbon Dioxide (21-32) mmol/L Anion Gap (6-13) BUN (6-20) mg/dL Creatinine (0.4-1.0) mg/dL Estimated GFR (MDRD) (>89) Glucose (70-100) mg/dL Calcium (8.5-10.3) mg/dL Phosphorus 2.7 (2.5-4.6) mg/dL Magnesium 1.6 L (1.7-2.8) mg/dL Total Bilirubin (0.2-1.0) mg/dL AST (10-42) IU/L ALT (10-60) IU/L Alkaline Phosphatase (42-121) IU/L Total Protein (6.7-8.2) g/dL Albumin (3.2-5.5) g/dL Globulin (2.1-4.2) g/dL Albumin/Globulin Ratio (1.0-2.2) - Current Medications Current Medications: Current Medications Generic Name Dose Route Start Last Admin Trade Name Freq PRN Reason Stop Dose Admin Acetaminophen/Hydrocodone Bitart 1 tab 05/27/17 15:25 05/29/17 05:47 [place] 5/325 PO 1 tab Q4HR PRN Administration PAIN Albuterol/Ipratropium 3 ml 05/27/17 11:16 05/28/17 19:45 Duoneb INH 3 ml Q4HR PRN Administration Wheezing Amiodarone HCl 200 mg 05/26/17 09:00 05/28/17 08:41 Pacerone PO 200 mg DAILY RAFA Administration Aspirin 325 mg 05/27/17 17:00 05/28/17 16:32 Sky PO 325 mg BIDWM RAFA Administration Budesonide 0.5 mg 05/27/17 21:00 05/28/17 19:45 Pulmicort INH 0.5 mg RTBID RAFA Administration Carvedilol 12.5 mg 05/28/17 09:00 05/28/17 08:41 Coreg PO 12.5 mg DAILY RAFA Administration Enoxaparin Sodium 40 mg 05/27/17 18:00 05/28/17 08:43 Lovenox SUBQ 40 mg DAILY RAFA Administration Fluoxetine HCl 20 mg 05/27/17 21:00 05/28/17 20:50 Prozac PO 20 mg 2100 RAFA Administration Hydromorphone HCl 1 mg 05/25/17 17:20 05/28/17 23:54 Dilaudid Inj Syringe IVP 1 mg Q2HR PRN Administration Pain 8 to 10 Sodium Chloride 1,000 mls @ 100 mls/hr 05/25/17 18:00 05/29/17 02:06 Normal Saline 0.9% IV 100 mls/hr .Q10H RAFA Administration Lorazepam 0.5 mg 05/25/17 18:51 05/26/17 05:55 Ativan PO 0.5 mg Q6H PRN Administration Anxiety Nicotine 1 patch 05/25/17 19:00 05/28/17 08:44 Nicoderm TOP Not Given DAILY RAFA Oxycodone HCl 5 mg 05/25/17 17:20 05/28/17 10:27 Roxicodone PO 5 mg Q4HR PRN Administration Pain 5 to 7 Pantoprazole Sodium 40 mg 05/25/17 21:00 05/28/17 20:50 Protonix IVP 40 mg BID RAFA Administration Sodium Chloride 10 ml 05/25/17 22:00 05/29/17 02:09 Normal Saline Flush 0.9% IVP 10 ml Q8HR RAFA Administration Sodium Chloride 10 ml 05/25/17 17:20 05/28/17 23:55 Normal Saline Flush 0.9% IVP 10 ml PRN PRN Administration NEEDED PER PROVIDER ORDERS Thiamine HCl 100 mg 05/26/17 09:00 05/28/17 08:42 Vitamin B-1 PO 100 mg DAILY RAFA Administration Triamterene/HCTZ 1 cap 05/28/17 09:00 05/28/17 08:41 Dyazide PO 1 cap DAILY RAFA Administration
[2017-05-29] MEDS: ALBUTEROL NEB 2.5 MG/3 ML INH SCH ×4 (09:07→20:29)
[2017-05-29] MEDS: CARVEDILOL 12.5 MG TABLET PO SCH (09:10)
[2017-05-29] MEDS: MAGNESIUM OXIDE 400 MG TABLET PO SCH (09:10)
[2017-05-29] MEDS: THIAMINE 100 MG TABLET PO SCH (09:10)
[2017-05-29] MEDS: ASPIRIN 325 MG TABLET PO SCH ×2 (09:10→18:22)
[2017-05-29] MEDS: SODIUM CHLORIDE FLUSH 0.9% 10 ML SYRINGE IVP PRN (09:11)
[2017-05-29] MEDS: AMIODARONE 200 MG TABLET PO SCH (09:11)
[2017-05-29] MEDS: DOCUSATE SODIUM 250 MG CAPSULE PO SCH (09:11)
[2017-05-29] MEDS: PANTOPRAZOLE 40 MG VIAL IVP SCH ×2 (09:11→20:30)
[2017-05-29] MEDS: SENNA 8.6 MG TABLET PO SCH (09:11)
[2017-05-29] MEDS: POLYETHYLENE GLYCOL 3350 17 GM PACKET PO SCH (09:12)
[2017-05-29] MEDS: ENOXAPARIN 40 MG/0.4 ML SYRINGE SUBQ SCH (09:12)
[2017-05-29] MEDS: IPRATROPIUM/ALBUTEROL 3 ML NEB INH PRN ×2 (09:23→22:25)
[2017-05-29] MEDS: BUDESONIDE 0.5 MG/2 ML NEB INH SCH ×2 (09:23→22:25)
[2017-05-29] MEDS: NICOTINE 7 MG PATCH TOP SCH (09:29)
[2017-05-29] MEDS: TRIAMT/HCTZ 37.5 MG/25 MG CAPSULE PO SCH (09:30)
--- NOTE | 2017-05-29 11:48 | XRAY Report ---
FRONTAL CHEST: 05/29/2017 CLINICAL INDICATION: Elevated white cell count, cough. COMPARISON: 05/25/2017 FINDINGS: Frontal view of the chest demonstrates a normal cardiac silhouette. There is a new left l ower lobe infiltrate present, with a small left effusion. No pneumothorax. IMPRESSION: NEW LEFT LOWER LOBE INFILTRATE WITH SMALL LEFT EFFUSION. JOB #: [id number] EXT JOB #:[id number]
[2017-05-29] MEDS ORDERED: SODIUM CHLORIDE 0.9% 1,000 ML IV ONE (13:03)
[2017-05-29] MEDS: CEFEPIME 2 GM in SODIUM CHLORIDE 0.9% MINIBAG 100 ML IV SCH ×2 (14:06→20:30)
[2017-05-29 14:36] LABS: FOLATE 2.58 ng/mL (5.90 - >24.8)
--- NOTE | 2017-05-29 14:44 | PROVIDER PROGRESS NOTE ---
Assessment/Plan - Problem List (1) Pneumonia Qualifiers: Laterality: left Lung location: lower lobe of lung Assessment/Plan: Patient having increasing shortness of breath and hypoxia since surgery She has been coughing and this morning has a leukocytosis with WBC of 15 and continues to have episodes of hypotension CXR this morning shows a left lower lobe pneumonia Given patient has been hospitalized for the last 4 days we will treat with broad spectrum abx Plan: IV cefepime and levaquin day 1 Duonebs prn Supplemental O2 (2) Fracture, intertrochanteric, right femur Qualifiers: Encounter type: initial encounter Fracture type: closed Fracture alignment: displaced Qualified Code(s): S72.141A - Displaced intertrochanteric fracture of right femur, initial encounter for closed fracture Assessment/Plan: POD#2 Bipolar replacement right hip Pain controlled PT did limited evaluation yesterday as patient was hypotensive will evaluate today Patient will likely need rehab On DVT prophylaxis post op (3) Right Olecranon Fracture Assessment/Plan: POD#2 ORIF right olecranon fracture Pain controlled PT evaluation today as patient was hypotensive yesterday Patient will likely need rehab (4) Hyponatremia Assessment/Plan: Resolving Na stable at 132 today Continue IVFs as patient is still having hypotension Monitor Na Improving (5) Alcohol abuse Assessment/Plan: History of alcohol abuse CIWA score was low so stopped CIWA protocol Patient has elevated MCV will check folate and B12 (5) Hypotension Assessment/Plan: Hypotensive again today possibly secondary to dehydration after major surgery along with pneumonia Check H&H Give IVF bolus Monitor closely (6) Afib Assessment/Plan: Hx of Afib, but Pt in NSR on Amiodarone, which will be continued - Current Meds Current Meds: Current Medications Generic Name Dose Route Start Last Admin Trade Name Freq PRN Reason Stop Dose Admin Acetaminophen/Hydrocodone Bitart 1 tab 05/27/17 15:25 05/29/17 09:10 [place] 5/325 PO 1 tab Q4HR PRN Administration PAIN Albuterol 2.5 mg 05/27/17 19:00 05/29/17 09:31 INH Not Given RTQ6H RAFA Albuterol/Ipratropium 3 ml 05/27/17 11:16 05/29/17 09:23 Duoneb INH 3 ml Q4HR PRN Administration Wheezing Aspirin 325 mg 05/27/17 17:00 05/29/17 09:10 Sky PO 325 mg BIDWM RAFA Administration Budesonide 0.5 mg 05/27/17 21:00 05/29/17 09:23 Pulmicort INH 0.5 mg RTBID RAFA Administration Docusate Sodium 250 - 500 mg 05/29/17 09:00 05/29/17 09:11 Colace 250mg Capsule PO 250 mg DAILY RAFA Administration Enoxaparin Sodium 40 mg 05/27/17 18:00 05/29/17 09:12 Lovenox SUBQ 40 mg DAILY RAFA Administration Fluoxetine HCl 20 mg 05/27/17 21:00 05/28/17 20:50 Prozac PO 20 mg 2100 RAFA Administration Hydromorphone HCl 1 mg 05/25/17 17:20 05/28/17 23:54 Dilaudid Inj Syringe IVP 1 mg Q2HR PRN Administration Pain 8 to 10 Sodium Chloride 1,000 mls @ 100 mls/hr 05/25/17 18:00 05/29/17 13:28 Normal Saline 0.9% IV 100 mls/hr .Q10H RAFA Administration Lorazepam 0.5 mg 05/25/17 18:51 05/26/17 05:55 Ativan PO 0.5 mg Q6H PRN Administration Anxiety Magnesium Oxide 400 mg 05/29/17 08:00 05/29/17 09:10 Mag Ox PO 400 mg DAILYWM RAFA Administration Nicotine 1 patch 05/25/17 19:00 05/29/17 09:29 Nicoderm TOP Not Given DAILY RAFA Oxycodone HCl 5 mg 05/25/17 17:20 05/28/17 10:27 Roxicodone PO 5 mg Q4HR PRN Administration Pain 5 to 7 Pantoprazole Sodium 40 mg 05/25/17 21:00 05/29/17 09:11 Protonix IVP 40 mg BID RAFA Administration Polyethylene Glycol 17 gm 05/29/17 09:00 05/29/17 09:12 Miralax PO 17 gm DAILY RAFA Administration Senna 8.6 - 17.2 mg 05/29/17 09:00 05/29/17 09:11 Senokot PO 8.6 mg DAILY RAFA Administration Sodium Chloride 10 ml 05/25/17 22:00 05/29/17 12:29 Normal Saline Flush 0.9% IVP Not Given Q8HR RAFA Sodium Chloride 10 ml 05/25/17 17:20 05/29/17 09:11 Normal Saline Flush 0.9% IVP 10 ml PRN PRN Administration NEEDED PER PROVIDER ORDERS Thiamine HCl 100 mg 05/26/17 09:00 05/29/17 09:10 Vitamin B-1 PO 100 mg DAILY RAFA Administration - Lab Result Lab results reviewed: Yes Fish Bone Diagrams: 05/29/17 05:21 05/29/17 05:21 - Diagnostic Imaging Results Diagnostic Imaging Results: Final report reviewed - Additional Planning Condition/Complexity: Guarded My Orders: My Active Orders 05/29/17 Echo Transthoracic Complete [ECHO] Routine UA w/ MICROSCOPIC, CULT IF [URIN] Urgent 05/29/17 08:00 Magnesium Oxide [Mag Ox] 400 mg PO DAILYWM 05/29/17 09:00 Docusate Sodium 250Mg Capsule [Colace 250Mg Capsule] 250 - 500 mg PO DAILY Polyethylene Glycol 3350 [Miralax] 17 gm PO DAILY Senna [Senokot] 8.6 - 17.2 mg PO DAILY 05/29/17 13:03 Sodium Chloride 0.9% [Normal Saline 0.9%] 1,000 ml IV ONCE 05/29/17 13:05 IS [Incentive Spirometry - RT] [RC] TID 05/29/17 13:30 FOLATE [IAI] Routine TROPONIN I [IAI] Routine VITAMIN B12 [IAI] Routine 05/29/17 14:00 Cefepime 2 gm Sodium Chloride 0.9% Minibag [Normal Saline 0.9% Minibag] 100 ml IV BID levoFLOXacin 500 MG/100 ML [Levaquin 500 mg/100 ml] 500 mg in 100 ml IV Q24H 05/30/17 05:00 CBC W/O DIFF (HEMOGRAM) [HEME] DAILYLAB CMP, RFLX TO IONIZED CA IF [CHEM] DAILYLAB 05/30/17 09:00 Amiodarone [Pacerone] 100 mg PO DAILY 05/31/17 05:00 CBC W/O DIFF (HEMOGRAM) [HEME] DAILYLAB CMP, RFLX TO IONIZED CA IF [CHEM] DAILYLAB Consult/Specialty: PT, Other (Ortho) Plan Discussed with:: Patient Time Spent: 31-60 minutes Subjective - Subjective Patient Reports: Cough (persistent), Pain (Controlled right hip and arm pain), Shortness of Breath (with exertion) Nursing Reports: No Complaints Objective Vital Signs: Vital Signs - 24 hr 05/28/17 05/28/17 05/28/17 15:45 15:58 19:45 Temperature 36.8 C 36.9 C Heart Rate 82 Heart Rate [ 79 77 Brachial] Respiratory 18 16 16 Rate Blood Pressure 102/54 L 101/53 L [Left Brachial artery] O2 Saturation 94 100 05/29/17 05/29/17 05/29/17 00:26 04:17 08:52 Temperature 36.6 C 36.5 C 36.7 C Heart Rate Heart Rate [ 82 89 93 Brachial] Respiratory 18 16 18 Rate Blood Pressure 134/70 H 145/65 H 137/76 H [Left Brachial artery] O2 Saturation 95 96 100 05/29/17 05/29/17 09:23 12:59 Temperature 37.2 C Heart Rate 65 Heart Rate [ 82 Brachial] Respiratory 20 18 Rate Blood Pressure 87/50 L [Left Brachial artery] O2 Saturation 96 Oxygen O2 Source Nasal cannula I&O (Last 24 Hrs): Intake and Output Totals x24h 05/27/17 05/28/17 05/29/17 23:59 23:59 23:59 Intake Total 4516 5210 2575.000 Output Total 700 1025 650 Balance 3816 4185 1925.000 General: Alert, Oriented x3, Mild distress (coughing, short of breath) HEENT: Atraumatic, PERRLA, EOMI, Mucous membr. moist/pink Neck: Supple, No JVD, No thyromegaly, +2 carotid pulse wo bruit, No LAD Lymphatic: no adenopathy Neuro: Alert, Non Focal, CN 2-12 Grossly Intact, Oriented Times 3 Cardiovascular: Regular rate, Normal S1, Normal S2, No murmurs Respiratory: Chest non-tender, No respiratory distress, Wheezes (scattered), Rales (bibasilar), Rhonchi (left lower lobe) Abdomen: Normal bowel sounds, Soft, No tenderness, No hepatospenomegaly Extremities: No clubbing, No cyanosis, Normal pulses, Other (right hip surgical incision looks clean, not infected) Skin: No rashes, No breakdown - Results Results: Laboratory Results WBC 15.1 x10^3/uL (4.8-10.8) H 05/29/17 05:21 RBC 2.20 10^6/uL (4.20-5.40) L 05/29/17 05:21 Hgb 9.5 g/dL (12.0-16.0) L 05/29/17 05:21 Hct 27.9 % (37.0-47.0) L 05/29/17 05:21 MCV 127.2 fL (81.0-99.0) H 05/29/17 05:21 MCH 43.2 pg (27.0-31.0) H 05/29/17 05:21 MCHC 34.0 g/dL (32.0-36.0) 05/29/17 05:21 RDW 13.7 % (12.0-15.0) 05/29/17 05:21 Plt Count 155 10^3/uL (130-450) 05/29/17 05:21 MPV 7.9 fL (7.9-10.8) 05/29/17 05:21 Neut # 10.0 10^3/uL (1.5-6.6) H 05/27/17 05:09 Lymph # 0.9 10^3/uL (1.5-3.5) L 05/27/17 05:09 [place] # 0.9 10^3/uL (0.0-1.0) 05/27/17 05:09 Eos # 0.0 10^3/uL (0.0-0.7) 05/27/17 05:09 Baso # 0.0 10^3/uL (0.0-0.1) 05/27/17 05:09 Absolute Nucleated RBC 0.00 x10^3/uL 05/27/17 05:09 Nucleated RBC % 0.0 /100WBC 05/27/17 05:09 Manual Slide Review Indicated 05/27/17 05:09 Platelet Estimate NORMAL (130-450,000) (NORMAL) 05/27/17 05:09 Platelet Morphology NORMAL APPEARANCE (NORMAL) 05/27/17 05:09 RBC Morph Micro Appear NORMAL APPEARANCE (NORMAL) 05/27/17 05:09 PT 10.8 secs (9.9-12.6) 05/25/17 15:11 INR 1.0 (0.8-1.2) 05/25/17 15:11 VBG pH 7.288 (7.31-7.41) L 05/29/17 05:21 Ionized Calcium 1.11 mmol/L (1.15-1.33) L 05/29/17 05:21 Sodium 132 mmol/L (135-145) L 05/29/17 05:21 Potassium 4.0 mmol/L (3.5-5.0) 05/29/17 05:21 Chloride 104 mmol/L (101-111) 05/29/17 05:21 Carbon Dioxide 21 mmol/L (21-32) 05/29/17 05:21 Anion Gap 7.0 (6-13) 05/29/17 05:21 BUN 8 mg/dL (6-20) 05/29/17 05:21 Creatinine 0.7 mg/dL (0.4-1.0) 05/29/17 05:21 Estimated GFR (MDRD) 83 (>89) L 05/29/17 05:21 Glucose 96 mg/dL (70-100) 05/29/17 05:21 Calcium 7.9 mg/dL (8.5-10.3) L 05/29/17 05:21 Ionized Calcium YES 05/29/17 05:21 Phosphorus 2.7 mg/dL (2.5-4.6) 05/29/17 05:21 Magnesium 1.6 mg/dL (1.7-2.8) L 05/29/17 05:21 Total Bilirubin 0.5 mg/dL (0.2-1.0) 05/29/17 05:21 Direct Bilirubin 0.1 mg/dL (0.1-0.5) 05/27/17 05:09 AST 40 IU/L (10-42) 05/29/17 05:21 ALT 15 IU/L (10-60) 05/29/17 05:21 Alkaline Phosphatase 76 IU/L (42-121) 05/29/17 05:21 Total Protein 4.5 g/dL (6.7-8.2) L 05/29/17 05:21 Albumin 2.4 g/dL (3.2-5.5) L 05/29/17 05:21 Globulin 2.1 g/dL (2.1-4.2) 05/29/17 05:21 Albumin/Globulin Ratio 1.1 (1.0-2.2) 05/29/17 05:21 Lipase 36 U/L (22-51) 05/25/17 15:11 Ethyl Alcohol < 5.0 mg/dL 05/25/17 15:11 Blood Type O POSITIVE 05/25/17 15:11 Antibody Screen NEGATIVE 05/25/17 15:11
[2017-05-29] MEDS: levoFLOXacin 500 MG/100 ML 500 MG/100 ML BAG IV SCH (14:53)
[2017-05-29] MEDS: FLUoxetine 10 MG CAPSULE PO SCH (20:30)
[2017-05-30] MEDS: HYDROcod/ACETAM 5/325 MG TABLET PO PRN ×2 (05:29→12:19)
[2017-05-30 05:42] LABS: ALBUMIN/GLOBULIN RATIO 0.9 (1.0-2.2); BILIRUBIN,TOTAL 0.8 mg/dL (0.2-1.0); BUN - BLOOD UREA NITROGEN 10 mg/dL (6-20); CALCIUM 7.8 mg/dL (8.5-10.3); CARBON DIOXIDE - CO2 22 mmol/L (21-32); CHLORIDE 105 mmol/L (101-111); CREATININE 0.6 mg/dL (0.4-1.0); GFR - MDRD 100 (>89); GLUCOSE 103 mg/dL (70-100); POTASSIUM 3.9 mmol/L (3.5-5.0); SODIUM 132 mmol/L (135-145); TOTAL PROTEIN 4.6 g/dL (6.7-8.2)
[2017-05-30 05:54] LABS: MAGNESIUM 1.5 mg/dL (1.7-2.8); PHOSPHORUS 2.2 mg/dL (2.5-4.6)
[2017-05-30 06:16] LABS: CALCIUM, IONIZED 1.12 mmol/L (1.15-1.33); VBG PH 7.412 (7.31-7.41)
[2017-05-30 06:20] LABS: HCT - HEMATOCRIT 26.5 % (37.0-47.0); HGB - HEMOGLOBIN 9.1 g/dL (12.0-16.0); MEAN CORPUSCULAR HEMOGLOBIN 43.3 pg (27.0-31.0); MEAN CORPUSCULAR HGB CONC 34.2 g/dL (32.0-36.0); MEAN CORPUSCULAR VOLUME 126.5 fL (81.0-99.0); MEAN PLATELET VOLUME 7.1 fL (7.9-10.8); RED BLOOD COUNT 2.1 10^6/uL (4.20-5.40); RED CELL DISTRIBUTION WIDTH 13.7 % (12.0-15.0); WHITE BLOOD COUNT 11.4 x10^3/uL (4.8-10.8)
[2017-05-30] MEDS: SODIUM CHLORIDE FLUSH 0.9% 10 ML SYRINGE IVP SCH ×2 (06:53→14:03)
[2017-05-30] MEDS: ALBUTEROL NEB 2.5 MG/3 ML INH SCH ×2 (08:04→08:05)
[2017-05-30] MEDS: ASPIRIN 325 MG TABLET PO SCH (08:10)
[2017-05-30] MEDS: THIAMINE 100 MG TABLET PO SCH (08:11)
[2017-05-30] MEDS: ENOXAPARIN 40 MG/0.4 ML SYRINGE SUBQ SCH (08:11)
[2017-05-30] MEDS: MAGNESIUM OXIDE 400 MG TABLET PO SCH (08:11)
[2017-05-30] MEDS: CEFEPIME 2 GM in SODIUM CHLORIDE 0.9% MINIBAG 100 ML IV SCH (08:12)
[2017-05-30] MEDS: NICOTINE 7 MG PATCH TOP SCH ×2 (08:13→08:19)
[2017-05-30] MEDS: POLYETHYLENE GLYCOL 3350 17 GM PACKET PO SCH (08:13)
[2017-05-30] MEDS: PANTOPRAZOLE 40 MG VIAL IVP SCH (08:17)
[2017-05-30] MEDS: DOCUSATE SODIUM 250 MG CAPSULE PO SCH (08:32)
[2017-05-30] MEDS: SENNA 8.6 MG TABLET PO SCH (08:32)
[2017-05-30] MEDS: FOLIC ACID 1 MG TABLET PO SCH ×2 (08:38→10:01)
[2017-05-30] MEDS ORDERED: ALBUTEROL NEB 2.5 MG/3 ML INH SCH (08:52)
[2017-05-30] MEDS ORDERED: AMIODARONE 200 MG TABLET PO SCH (09:00)
[2017-05-30] MEDS: BUDESONIDE 0.5 MG/2 ML NEB INH SCH (09:28)
--- NOTE | 2017-05-30 10:20 | PROVIDER PROGRESS NOTE ---
Subjective - General Admit Date: 05/25/17 Procedure Date: 05/27/17 Post Op Days: 3 Procedure Performed: Right Olecranon ORIF, Right Hip Hemiarthroplasty - Review of Systems Wound/Incisions: positive: Healing well General: positive: Fatigue Musculoskeletal: positive: Joint pain Psychiatric: positive: No symptoms Objective - Patient Data Reviewed Vital Signs: Yes Vital Signs: Vital Signs x48h Temp Pulse Resp BP Pulse Ox 05/30/17 09:08 97 99 05/30/17 07:51 36.8 C 92 20 160/82 H 100 05/30/17 05:35 36.8 C 96 16 157/96 H 98 Weight: Weight 05/28/17 05/29/17 05/30/17 23:59 23:59 23:59 Weight (kg) 59 kg 61.5 kg 67 kg Intake & Output: Intake and Output Totals x24h 05/28/17 05/29/17 05/30/17 23:59 23:59 23:59 Intake Total 5210 4185.333 460 Output Total 1025 1000 350 Balance 4185 3185.333 110 - Lab Results Lab Results: 05/30/17 05:57 05/30/17 05:20 Other Lab Results: Lab Results x24hrs 05/30/17 05/30/17 05/30/17 Range/Units 05:57 05:20 05:20 WBC 11.4 H (4.8-10.8) x10^3/uL RBC 2.10 L (4.20-5.40) 10^6/uL Hgb 9.1 L (12.0-16.0) g/dL Hct 26.5 L (37.0-47.0) % MCV 126.5 H (81.0-99.0) fL MCH 43.3 H (27.0-31.0) pg MCHC 34.2 (32.0-36.0) g/dL RDW 13.7 (12.0-15.0) % Plt Count 181 (130-450) 10^3/uL MPV 7.1 L (7.9-10.8) fL VBG pH 7.412 H (7.31-7.41) Ionized Calcium 1.12 L YES (1.15-1.33) mmol/L Sodium 132 L (135-145) mmol/L Potassium 3.9 (3.5-5.0) mmol/L Chloride 105 (101-111) mmol/L Carbon Dioxide 22 (21-32) mmol/L Anion Gap 5.0 L (6-13) BUN 10 (6-20) mg/dL Creatinine 0.6 (0.4-1.0) mg/dL Estimated GFR (MDRD) 100 (>89) Glucose 103 H (70-100) mg/dL Calcium 7.8 L (8.5-10.3) mg/dL Phosphorus (2.5-4.6) mg/dL Magnesium (1.7-2.8) mg/dL Total Bilirubin 0.8 (0.2-1.0) mg/dL AST 37 (10-42) IU/L ALT 14 (10-60) IU/L Alkaline Phosphatase 77 (42-121) IU/L Troponin I (<0.49) ng/mL Total Protein 4.6 L (6.7-8.2) g/dL Albumin 2.2 L (3.2-5.5) g/dL Globulin 2.4 (2.1-4.2) g/dL Albumin/Globulin Ratio 0.9 L (1.0-2.2) Vitamin B12 (180-914) pg/mL Folate (5.90 - >24.8) ng/mL 05/30/17 05/29/17 05/29/17 Range/Units 05:20 13:30 13:30 WBC (4.8-10.8) x10^3/uL RBC (4.20-5.40) 10^6/uL Hgb (12.0-16.0) g/dL Hct (37.0-47.0) % MCV (81.0-99.0) fL MCH (27.0-31.0) pg MCHC (32.0-36.0) g/dL RDW (12.0-15.0) % Plt Count (130-450) 10^3/uL MPV (7.9-10.8) fL VBG pH (7.31-7.41) Ionized Calcium (1.15-1.33) mmol/L Sodium (135-145) mmol/L Potassium (3.5-5.0) mmol/L Chloride (101-111) mmol/L Carbon Dioxide (21-32) mmol/L Anion Gap (6-13) BUN (6-20) mg/dL Creatinine (0.4-1.0) mg/dL Estimated GFR (MDRD) (>89) Glucose (70-100) mg/dL Calcium (8.5-10.3) mg/dL Phosphorus 2.2 L (2.5-4.6) mg/dL Magnesium 1.5 L (1.7-2.8) mg/dL Total Bilirubin (0.2-1.0) mg/dL AST (10-42) IU/L ALT (10-60) IU/L Alkaline Phosphatase (42-121) IU/L Troponin I 0.07 (<0.49) ng/mL Total Protein (6.7-8.2) g/dL Albumin (3.2-5.5) g/dL Globulin (2.1-4.2) g/dL Albumin/Globulin Ratio (1.0-2.2) Vitamin B12 341 (180-914) pg/mL Folate 2.58 L (5.90 - >24.8) ng/mL - Current Medications Current Medications: Current Medications Generic Name Dose Route Start Last Admin Trade Name Freq PRN Reason Stop Dose Admin Acetaminophen/Hydrocodone Bitart 1 tab 05/27/17 15:25 05/30/17 05:29 [place] 5/325 PO 1 tab Q4HR PRN Administration PAIN Albuterol/Ipratropium 3 ml 05/27/17 11:16 05/29/17 22:25 Duoneb INH 3 ml Q4HR PRN Administration Wheezing Amiodarone HCl 100 mg 05/30/17 09:00 05/30/17 08:10 Pacerone PO 100 mg DAILY RAFA Administration Aspirin 325 mg 05/27/17 17:00 05/30/17 08:10 Sky PO 325 mg BIDWM RAFA Administration Budesonide 0.5 mg 05/27/17 21:00 05/30/17 09:28 Pulmicort INH 0.5 mg RTBID RAFA Administration Docusate Sodium 250 - 500 mg 05/29/17 09:00 05/30/17 08:32 Colace 250mg Capsule PO Not Given DAILY RAFA Enoxaparin Sodium 40 mg 05/27/17 18:00 05/30/17 08:11 Lovenox SUBQ 40 mg DAILY RAFA Administration Fluoxetine HCl 20 mg 05/27/17 21:00 05/29/17 20:30 Prozac PO 20 mg 2100 RAFA Administration Folic Acid 1 mg 05/30/17 08:00 05/30/17 10:01 PO Not Given DAILY RAFA Hydromorphone HCl 1 mg 05/25/17 17:20 05/28/17 23:54 Dilaudid Inj Syringe IVP 1 mg Q2HR PRN Administration Pain 8 to 10 Sodium Chloride 1,000 mls @ 100 mls/hr 05/25/17 18:00 05/29/17 23:59 Normal Saline 0.9% IV 100 mls/hr .Q10H RAFA Administration Cefepime HCl 2 gm/ Sodium 100 mls @ 200 mls/hr 05/29/17 14:00 05/30/17 10:05 Chloride IV Infused BID RAFA Infusion Levofloxacin 500 mg in 100 mls @ 100 mls/hr 05/29/17 14:00 05/29/17 16:09 Levaquin 500 Mg/100 Ml IV Infused Q24H RAFA Infusion Lorazepam 0.5 mg 05/25/17 18:51 05/26/17 05:55 Ativan PO 0.5 mg Q6H PRN Administration Anxiety Magnesium Oxide 400 mg 05/29/17 08:00 05/30/17 08:11 Mag Ox PO 400 mg DAILYWM RAFA Administration Nicotine 1 patch 05/25/17 19:00 05/30/17 08:19 Nicoderm TOP Not Given DAILY RAFA Oxycodone HCl 5 mg 05/25/17 17:20 05/28/17 10:27 Roxicodone PO 5 mg Q4HR PRN Administration Pain 5 to 7 Pantoprazole Sodium 40 mg 05/25/17 21:00 05/30/17 08:17 Protonix IVP 40 mg BID RAFA Administration Polyethylene Glycol 17 gm 05/29/17 09:00 05/30/17 08:13 Miralax PO 17 gm DAILY RAFA Administration Senna 8.6 - 17.2 mg 05/29/17 09:00 05/30/17 08:32 Senokot PO Not Given DAILY RAFA Sodium Chloride 10 ml 05/25/17 22:00 05/30/17 06:53 Normal Saline Flush 0.9% IVP Not Given Q8HR RAFA Sodium Chloride 10 ml 05/25/17 17:20 05/29/17 09:11 Normal Saline Flush 0.9% IVP 10 ml PRN PRN Administration NEEDED PER PROVIDER ORDERS Thiamine HCl 100 mg 05/26/17 09:00 05/30/17 08:11 Vitamin B-1 PO 100 mg DAILY RAFA Administration - Physical Exam Wound/Incisions: positive: Dressing dry and intact General Appearance: positive: Lethargic Extremities: positive: Joint swelling Neurologic/Psychiatric: positive: Motor nml, Sensation nml Impression/Plan - Problem List Problem List: pOD #3 Pt doing ok from ORtho standpoint. Pt reports "pneumonia" which accounts for WBC change. Rec. cont. with PT. Plan for SNF at D/C
[2017-05-30] MEDS: SODIUM CHLORIDE 0.9% 1,000 ML IV SCH (10:28)
[2017-05-30 12:31] VITALS: BP 158/70
[2017-05-30] MEDS: IPRATROPIUM/ALBUTEROL 3 ML NEB INH PRN (13:40)
[2017-05-30] MEDS: levoFLOXacin 500 MG/100 ML 500 MG/100 ML BAG IV SCH (14:02)
--- NOTE | 2017-05-30 15:08 | DISCHARGE SUMMARY ---
"Discharge Summary Admit Date: 05/25/17 Discharge Date: 05/30/17 Discharging Provider: Rick Carver MD Primary Care Provider: Francheska DUENAS Code Status: Attempt Resuscitation Condition at Discharge: Fair Discharge Disposition: SNF DC/Xfer Discharge Facility Name: [facility] - DIAGNOSES Admission Diagnoses: 1. Hyponatremia 2. Hypokalemia 3. Right femoral neck fracture 4. Right olecranon fracture 5. History of atrial fibrillation 6. Alcohol abuse Discharge Diagnoses with Status of Each Condition: 1. Pneumonia: Improving 2. Right femoral neck fracture: Resolving 3. Displaced olecranon fracture: Resolving 4. Hyponatremia: Improved 5. Alcohol abuse: Stable 6. Hypotension: Resolved 7. History of atrial fibrillation: Stable 8. Folate deficiency: Resolving - HPI History of Present Illness: Patient is a 67-year-old female with a past medical history significant for atrial fibrillation on amiodarone to maintain sinus rhythm, she does not take any anticoagulation, however. She has a history of excessive alcohol intake with 8 shots of vodka mixed drinks daily and she has a history of hypertension and COPD and continues to smoke. The patient presented to the emergency department after a fall. The patient stated that she was outdoors and took a rapid turn and got dizzy and fell down directly onto her right side. She came into the emergency department with multiple areas of pain and trauma and was found to have a right femoral neck fracture as well as a displaced right olecranon fracture. The patient was found to have a sodium level of 116 and therefore was admitted to the hospitalist service with orthopedic consultation. The patient was also hypokalemic and was placed on potassium and given a banana bag with thiamine multivitamin and folate replacement. The patient was initially also placed on CIWA protocol for possible alcohol withdrawal. - CONSULTS | PROCEDURES Consultations: Orthopedic surgery Procedures: Bipolar replacement of right hip ORIF right olecranon fracture - HOSPITAL COURSE Hospital Course: The patient was initially admitted by the hospitalist service and placed on a banana bag along with a free fluid restriction. Over the course of 2 days the patient's sodium improved to 130 at which point the patient was stable to go to surgery. The patient underwent a bipolar replacement of the right hip and an ORIF of the right olecranon fracture. Postoperatively the patient developed increasing cough and shortness of breath with a leukocytosis and chest x-ray revealed that she had a new left lower lobe pneumonia. The patient was started on IV Levaquin and cefepime and continued on duo nebs for her COPD. The patient also had a high MCV and was found to have folate deficiency and was placed on folic acid. The patient was placed on alcohol withdrawal protocol however only had some minimal tremors and required only a few doses of Ativan and never went into full withdrawal. The patient had several episodes of hypotension during hospitalization this was thought to be secondary to dehydration as well as her infection. The hypotension resolved with IV fluids and eventually she was placed back on her antihypertensive medications. The patient was maintained on her home dose of amiodarone and remained in sinus rhythm. The patient was seen by physical therapy and was recommended to go [facility] with further physical therapy. The patient's pain was controlled throughout the hospitalization. The patient was discharged to [facility] for rehab and was prescribed oxycodone for pain. The patient was also continued on Levaquin for her pneumonia and will complete a 7 day course at [facility]. - ALLERGIES Allergies/Adverse Reactions: Allergies Allergy/AdvReac Type Severity Reaction Status Date / Time bacitracin Allergy Unknown Verified 05/25/17 14:08 [From Neosporin ([id number])] bacitracin zinc * Allergy Unknown Verified 05/25/17 14:08 [From Neosporin ([id number])] meperidine HCl * Allergy Unknown Verified 05/25/17 14:09 [From Demerol] neomycin sulfate * Allergy Unknown Verified 05/25/17 14:08 [From Neosporin ([id number])] polymyxin B Allergy Unknown Verified 05/25/17 14:08 [From Neosporin ([id number]-[id number])] - MEDICATIONS Home Medications: Ambulatory Orders Medication Instructions Recorded Confirmed Amiodarone [Pacerone] 100 mg PO DAILY 05/25/17 05/26/17 Losartan [Cozaar] 25 mg PO DAILY 05/25/17 05/26/17 Albuterol Sulfate [Proair Hfa 2 puffs INH Q6H PRN 05/26/17 05/26/17 Inhaler] Carvedilol [Coreg] 12.5 mg PO DAILY 05/26/17 05/26/17 Fluoxetine HCl [Fluoxetine HCl] 20 mg PO DAILY PM 10/02/17 10/02/17 Fluticasone 44 Mcg [Flovent] 2 puffs INH BID 05/26/17 05/26/17 Triamterene/Hydrochlorothiazid 1 each PO DAILY 05/26/17 05/26/17 [Triamterene-Hctz 37.5-25 mg Tb] - PHYSICAL EXAM AT DISCHARGE General Appearance: positive: Alert, Mild distress (Mild pain), Other ( Depressed mood) Eyes Bilateral: positive: Normal inspection, PERRL, EOMI, No lid inflammation, Conjunctivae nml, No scleral icterus ENT: positive: ENT inspection nml, Pharynx nml, No signs of dehydration. negative: Purulent nasal drainage, Pharyngeal erythema, Oral lesions Neck: positive: Nml inspection, Thyroid nml, No JVD, Trachea midline. negative : Thyromegaly, Lymphadenopathy (R), Lymphadenopathy (L), Stiff neck, Carotid bruit, Tracheal deviation Respiratory: positive: Chest non-tender, No respiratory distress, Breath sounds nml, Wheezes (scattered), Rhonchi (Left lower lobe) Cardiovascular: positive: Regular rate & rhythm, No murmur, No gallop Peripheral Pulses: positive: 2+ Abdomen: positive: Non-tender, No organomegaly, Nml bowel sounds, No distention. negative: Guarding, Rebound, Hepatomegaly Back: positive: Nml inspection. negative: CVA tenderness (R), CVA tenderness (L ) Skin: positive: Color nml, No rash, Warm. negative: Cyanosis, Diaphoresis, Pallor Extremities: positive: No pedal edema, Other (Right arm in splint post op, right leg decreased ROM secondary to recent surgery.) Neurologic/Psychiatric: positive: Oriented x3, CN's nml (2-12), Motor nml, Sensation nml, Depressed mood/affect - LABS Result Diagrams: 05/30/17 05:57 05/30/17 05:20 Other Lab Results: Laboratory Results WBC 11.4 x10^3/uL (4.8-10.8) H 05/30/17 05:57 RBC 2.10 10^6/uL (4.20-5.40) L 05/30/17 05:57 Hgb 9.1 g/dL (12.0-16.0) L 05/30/17 05:57 Hct 26.5 % (37.0-47.0) L 05/30/17 05:57 MCV 126.5 fL (81.0-99.0) H 05/30/17 05:57 MCH 43.3 pg (27.0-31.0) H 05/30/17 05:57 MCHC 34.2 g/dL (32.0-36.0) 05/30/17 05:57 RDW 13.7 % (12.0-15.0) 05/30/17 05:57 Plt Count 181 10^3/uL (130-450) 05/30/17 05:57 MPV 7.1 fL (7.9-10.8) L 05/30/17 05:57 Neut # 10.0 10^3/uL (1.5-6.6) H 05/27/17 05:09 Lymph # 0.9 10^3/uL (1.5-3.5) L 05/27/17 05:09 [place] # 0.9 10^3/uL (0.0-1.0) 05/27/17 05:09 Eos # 0.0 10^3/uL (0.0-0.7) 05/27/17 05:09 Baso # 0.0 10^3/uL (0.0-0.1) 05/27/17 05:09 Absolute Nucleated RBC 0.00 x10^3/uL 05/27/17 05:09 Nucleated RBC % 0.0 /100WBC 05/27/17 05:09 Manual Slide Review Indicated 05/27/17 05:09 Platelet Estimate NORMAL (130-450,000) (NORMAL) 05/27/17 05:09 Platelet Morphology NORMAL APPEARANCE (NORMAL) 05/27/17 05:09 RBC Morph Micro Appear NORMAL APPEARANCE (NORMAL) 05/27/17 05:09 PT 10.8 secs (9.9-12.6) 05/25/17 15:11 INR 1.0 (0.8-1.2) 05/25/17 15:11 VBG pH 7.412 (7.31-7.41) H 05/30/17 05:20 Ionized Calcium 1.12 mmol/L (1.15-1.33) L 05/30/17 05:20 Sodium 132 mmol/L (135-145) L 05/30/17 05:20 Potassium 3.9 mmol/L (3.5-5.0) 05/30/17 05:20 Chloride 105 mmol/L (101-111) 05/30/17 05:20 Carbon Dioxide 22 mmol/L (21-32) 05/30/17 05:20 Anion Gap 5.0 (6-13) L 05/30/17 05:20 BUN 10 mg/dL (6-20) 05/30/17 05:20 Creatinine 0.6 mg/dL (0.4-1.0) 05/30/17 05:20 Estimated GFR (MDRD) 100 (>89) 05/30/17 05:20 Glucose 103 mg/dL (70-100) H 05/30/17 05:20 Calcium 7.8 mg/dL (8.5-10.3) L 05/30/17 05:20 Ionized Calcium YES 05/30/17 05:20 Phosphorus 2.2 mg/dL (2.5-4.6) L 05/30/17 05:20 Magnesium 1.5 mg/dL (1.7-2.8) L 05/30/17 05:20 Total Bilirubin 0.8 mg/dL (0.2-1.0) 05/30/17 05:20 Direct Bilirubin 0.1 mg/dL (0.1-0.5) 05/27/17 05:09 AST 37 IU/L (10-42) 05/30/17 05:20 ALT 14 IU/L (10-60) 05/30/17 05:20 Alkaline Phosphatase 77 IU/L (42-121) 05/30/17 05:20 Troponin I 0.07 ng/mL (<0.49) 05/29/17 13:30 Total Protein 4.6 g/dL (6.7-8.2) L 05/30/17 05:20 Albumin 2.2 g/dL (3.2-5.5) L 05/30/17 05:20 Globulin 2.4 g/dL (2.1-4.2) 05/30/17 05:20 Albumin/Globulin Ratio 0.9 (1.0-2.2) L 05/30/17 05:20 Lipase 36 U/L (22-51) 05/25/17 15:11 Vitamin B12 341 pg/mL (180-914) 05/29/17 13:30 Folate 2.58 ng/mL (5.90 - >24.8) L 05/29/17 13:30 Ethyl Alcohol < 5.0 mg/dL 05/25/17 15:11 Blood Type O POSITIVE 05/25/17 15:11 Antibody Screen NEGATIVE 05/25/17 15:11 - DIAGNOSTIC IMAGING Diagnostic Imaging Results: Final report reviewed Diagnostic Imaging Results Comments: CT cervical spine Impression: 1. Chronic degenerative disc disease without acute fracture or subluxation Elbow x-ray Impression: Positive for displaced olecranon fracture Hand x-ray Impression: Chronic degenerative disease of the right hand including periarticular demineralization and second and third metacarpal phalangeal joint space narrowing: Raising suspicion for rheumatoid arthritis. No acute fracture. CT head Impression: 1. No acute hemorrhage or mass-effect. 2. Small areas of encephalomalacia in the left frontal lobe consistent with old infarcts or chronic trauma. Chest x-ray Impression: Clear lungs Hip/pelvic x-ray Impression: Unremarkable postoperative exam Chest x-ray 05/29/2017 Impression: New left lower lobe infiltrate with small left effusion. - FOLLOW UP Follow Up: Patient discharged to [facility] for rehab after right hip and elbow fracture repair. Patient will require physical therapy for 1-2 weeks until she is strong enough to return home. The patient is weightbearing as tolerated on the right leg and nonweightbearing on the right upper extremity. The patient will continue on oral antibiotics for treatment of her pneumonia. She will follow-up with orthopedic surgery in 7-10 days for removal of yvonne and follow -up. The patient was discharged to [facility] with Nicole in place and will need to be reassessed for Nicole removal in 1-2 days. - TIME SPENT Time Spent in Discharge (Minutes): 55 (Fax to PCP)"
[2017-05-30 15:17] LABS: BILIRUBIN,URINE NEGATIVE (NEGATIVE)
--- NOTE | 2017-05-30 15:26 | Discharge Plan ---
Discharge Plan Disposition: 03 SNF DC/Xfer Condition: Fair Diet: Regular Activity Restrictions: Wt Bearing as Tolerated Shower Restrictions: No Driving Restrictions: No Assistance Devices: Walker Weight Bearing: Other (LUIS DOUGLAS) No Smoking: If you smoke, Please STOP! Call for help. Follow-up with: Francheska Sandoval PA [Primary Care Provider] -
[2017-05-30 15:35] LABS: UR CULTURE IF IND INDICATED
== END 2017-05-30 15:25 | DRG 470 ==
LOC: EDUNIT# → ED 13:59 → ICU 17:20 → MS2 05-27 16:23
PROVIDERS: ADMIT Internal Medicine; ATTEND Internal Medicine
PROC: 0SRR019 Replacement of Right Hip Joint, Femoral Surface with Metal Synthetic Substitute, Cemented, Open Approach (ICD-10-PCS; principal; 2017-05-27 12:30)
PROC: 0PSK04Z Reposition Right Ulna with Internal Fixation Device, Open Approach (ICD-10-PCS; 2017-05-27 12:30)
DX: S72.141A Displaced intertrochanteric fracture of right femur, initial encounter for closed fracture (principal); J95.89 Other postprocedural complications and disorders of respiratory system, not elsewhere classified; E87.1 Hypo-osmolality and hyponatremia; E87.6 Hypokalemia; S52.021A Displaced fracture of olecranon process without intraarticular extension of right ulna, initial encounter for closed fracture; W18.39XA Other fall on same level, initial encounter; F10.10 Alcohol abuse, uncomplicated; E53.8 Deficiency of other specified B group vitamins; R79.89 Other specified abnormal findings of blood chemistry; J44.9 Chronic obstructive pulmonary disease, unspecified; I48.91 Unspecified atrial fibrillation; I10 Essential (primary) hypertension; F17.210 Nicotine dependence, cigarettes, uncomplicated; F32.9 Major depressive disorder, single episode, unspecified; S60.511A Abrasion of right hand, initial encounter; Y93.89 Activity, other specified; Y92.008 Other place in unspecified non-institutional (private) residence as the place of occurrence of the external cause; Y99.0 Civilian activity done for income or pay; Z79.899 Other long term (current) drug therapy; Y83.8 Other surgical procedures as the cause of abnormal reaction of the patient, or of later complication, without mention of misadventure at the time of the procedure; Y92.230 Patient room in hospital as the place of occurrence of the external cause
CPT/HCPCS: 29105; 36415; 51702; 70450; 71010; 72125; 80048; 80053; 80076; 80320; 81001; 82330; 82607; 82746; 83690; 83735; 84100; 84132; 84484; 85014; 85018; 85025; 85610; 86850; 86900; 86901; 87086; 87150; 90471; 93005; 93306; 94640; 96365; 96368; 96375; 99283; 99284; 99285; 99406

== ENCOUNTER 2017-06-01 08:00 | Outpatient (CLI) | payer MEDICARE ==
[2017-06-01 11:43] LABS: BASOPHILS % (AUTO) 0.3 %; EOSINOPHILS # (AUTO) 0.1 10^3/uL (0.0-0.7); EOSINOPHILS % (AUTO) 0.7 %; HCT - HEMATOCRIT 26.6 % (37.0-47.0); HGB - HEMOGLOBIN 9.2 g/dL (12.0-16.0); LYMPHOCYTES # (AUTO) 1.1 10^3/uL (1.5-3.5); MEAN CORPUSCULAR HEMOGLOBIN 42.7 pg (27.0-31.0); MEAN CORPUSCULAR HGB CONC 34.4 g/dL (32.0-36.0); MEAN PLATELET VOLUME 8.1 fL (7.9-10.8); MONOCYTES % (AUTO) 9.5 %; NEUTROPHILS # (AUTO) 8.4 10^3/uL (1.5-6.6); NEUTROPHILS % (AUTO) 79.5 %; NUCLEATED RED BLOOD CELLS AUTO 0.1 /100WBC; RED BLOOD COUNT 2.15 10^6/uL (4.20-5.40); RED CELL DISTRIBUTION WIDTH 13.8 % (12.0-15.0); UNCORRECTED WHITE BLOOD COUNT 10.5 x10^3/uL; WHITE BLOOD COUNT 10.5 x10^3/uL (4.8-10.8)
[2017-06-01 11:45] LABS: MEAN CORPUSCULAR VOLUME 123.9 fL (81.0-99.0)
[2017-06-01 11:51] LABS: BILIRUBIN,TOTAL 0.4 mg/dL (0.2-1.0); CALCIUM 8.1 mg/dL (8.5-10.3); CREATININE 0.6 mg/dL (0.4-1.0); POTASSIUM 4.5 mmol/L (3.5-5.0); TOTAL PROTEIN 3.9 g/dL (6.7-8.2)
== END 2017-06-01 08:01 | disposition home or self-care (01) ==
LOC: LAB.R 08:00
PROVIDERS: ATTEND Family Medicine
DX: J18.9 Pneumonia, unspecified organism (principal); I10 Essential (primary) hypertension; J45.909 Unspecified asthma, uncomplicated
CPT/HCPCS: 80053; 85025

== ENCOUNTER 2017-06-03 16:39 | Outpatient (CLI) | payer MEDICARE | END 2017-06-03 16:40 | disposition critical access hospital (66) | LOC: EMS 16:39 | PROVIDERS: ATTEND Surgery | DX: S73.004A Unspecified dislocation of right hip, initial encounter (principal) | CPT/HCPCS: A0425; A0428; A0429 ==

== ENCOUNTER 2017-06-03 16:45 | Emergency (ER) | payer MEDICARE ==
--- NOTE | 2017-06-03 16:51 | ED Physician Documentation ---
History of Present Illness - Stated complaint Stated Complaint: HIP DISLOCATED - History obtained from History obtained from: Patient, EMS - History of Present Illness Timing: Other (67-year-old woman recently admitted for olecranon fracture and right hip fracture, both were fixed and she had a right hip replacement. She was at the senior care today and had a near fall and could not walk or bear weight after that because of new hip pain, x-rays which do not accompany her evidently showed a hip dislocation. No other new injuries.) Review of Systems Constitutional: reports: Reviewed and negative Throat: reports: Reviewed and negative Cardiac: reports: Reviewed and negative Respiratory: reports: Reviewed and negative PD PAST MEDICAL HISTORY - Past Medical History Cardiovascular: Hypertension, Atrial fibrillation Respiratory: COPD Neuro: None Endocrine/Autoimmune: None GI: Cirrhosis : None HEENT: None Psych: None Musculoskeletal: None Derm: None - Present Medications Home Medications: Ambulatory Orders Medication Instructions Recorded Confirmed Amiodarone [Pacerone] 100 mg PO DAILY 05/25/17 05/26/17 Losartan [Cozaar] 25 mg PO DAILY 05/25/17 05/26/17 Albuterol Sulfate [Proair Hfa 2 puffs INH Q6H PRN 05/26/17 05/26/17 Inhaler] Carvedilol [Coreg] 12.5 mg PO DAILY 05/26/17 05/26/17 Fluoxetine HCl [Fluoxetine HCl] 20 mg PO DAILY PM 05/26/17 05/26/17 Fluticasone 44 Mcg [Flovent] 2 puffs INH BID 05/26/17 05/26/17 Triamterene/Hydrochlorothiazid 1 each PO DAILY 05/26/17 05/26/17 [Triamterene-Hctz 37.5-25 mg Tb] - Allergies Allergies/Adverse Reactions: Allergies Allergy/AdvReac Type Severity Reaction Status Date / Time bacitracin Allergy Unknown Verified 05/25/17 14:08 [From Neosporin ([id number])] bacitracin zinc * Allergy Unknown Verified 05/25/17 14:08 [From Neosporin ([id number])] meperidine HCl * Allergy Unknown Verified 05/25/17 14:09 [From Demerol] neomycin sulfate * Allergy Unknown Verified 05/25/17 14:08 [From Neosporin ([id number])] polymyxin B Allergy Unknown Verified 05/25/17 14:08 [From Neosporin ([id number])] - Social History Does the pt smoke?: Yes Smoking Status: Current every day smoker Does the pt drink ETOH?: Yes Does the pt have substance abuse?: No - Immunizations Immunizations are current?: No Immunizations: TDAP >10years/unknown PD ED PE NORMAL - Vitals Vital signs reviewed: Yes - General General: Alert and oriented X 3, No acute distress - HEENT HEENT: PERRL, EOMI - Neck Neck: Supple, no meningeal sign, No bony TTP - Cardiac Cardiac: RRR, No murmur - Respiratory Respiratory: No respiratory distress, Clear bilaterally - Abdomen Abdomen: Soft, Non tender - Back Back: No CVA TTP, No spinal TTP - Derm Derm: Normal color, Warm and dry - Extremities Extremities: Other (Right hip is held in flexion with slight internal rotation and cannot be arranged at all.) - Neuro Neuro: Alert and oriented X 3, Normal speech - Psych Psych: Normal mood, Normal affect Results - Vitals Vitals: Vital Signs - 24 hr 06/03/17 06/03/17 06/03/17 16:48 18:31 18:33 Temperature 36.4 C L Heart Rate 77 84 78 Respiratory 16 18 14 Rate Blood Pressure 178/102 H 139/115 H O2 Saturation 98 99 06/03/17 06/03/17 06/03/17 18:39 18:42 19:23 Temperature Heart Rate 77 73 76 Respiratory 19 16 16 Rate Blood Pressure 134/67 H 134/67 H 161/79 H O2 Saturation 98 98 99 Oxygen O2 Source Room air - Rads (name of study) R hip Radiology: EMP read contemporaneously (Superior dislocation of right hip arthroplasty) R hip XR post reduction Radiology: EMP read contemporaneously (Anatomic alignment) Procedures - Reduction Body part reduced: Right, Hip, prosthetic Fracture or dislocation: Dislocation Anesthesia: Conscious sedation Hip reduction technique: Allis - flex/pull/rotate Reduction aftercare: Alignment improved - Procedural sedation Sedation prep: Informed consent, AHA 2 - mild disease, IV O2 monitor, ET CO2 monitor, RT present Sedation medications: propofol (80mg IVP) Patient status during sedation: Responds to tactile, Maintained airway, Recovered uneventfully PD MEDICAL DECISION MAKING - ED course ED course: 67-year-old woman with recent bipolar hip replacement presents with dislocation of same, because of the concern for an acetabular component of the case was discussed prior to sedation and reduction with the on-call orthopedist, Dr. Socrates Menendez, after I read him the operative port he felt it was safe to do a trial of ED reduction which was done and apparently successful. Departure - Departure Disposition: 01 Home, Self Care Clinical Impression: Dislocation of hip joint prosthesis Qualifiers: Encounter type: initial encounter Qualified Code(s): T84.029A - Dislocation of unspecified internal joint prosthesis, initial encounter Condition: Good Record reviewed to determine appropriate education?: Yes Instructions: ED Hip Replace Dislocation Reduc Comments: She may walk and bear weight but should wear the Knee immobilizer at all times while up and around. Follow-up with Dr. Ledezma as scheduled. Return if worse. Your blood pressure was elevated today on check into the emergency department. This does not mean that you have hypertension, it is a common phenomenon to come to the emergency department and have elevated blood pressure. I recommend that she see your primary care physician within the week to have it rechecked when you are feeling better.
[2017-06-03] MEDS: HYDROmorphone 1 MG/ML CARPUJECT IVP STA ×2 (17:15→20:12)
[2017-06-03] MEDS ORDERED: HYDROmorphone 1 MG/ML SYRINGE ONE ×2 (17:18→20:13)
--- NOTE | 2017-06-03 17:57 | XRAY Preliminary Report ---
Exam: XR HIP W/PELVIS 2-3V RT IMPRESSION: Superior dislocation of the right total hip arthroplasty including the acetabular compone nt which is dislocated with the total hip arthroplasty from the [place] acetabulum. Mild buckling of the cortex consistent with an acute right inferior pubic ramus fracture, unchanged c ompared to prior, not definitely seen on 05/25/2017. [facility] SITE ID: [id number]
--- NOTE | 2017-06-03 17:59 | XRAY Report ---
EXAM: RIGHT HIP AND PELVIS RADIOGRAPHY EXAM DATE: 06/03/2017 05:40 PM. HISTORY: Right Hip dislocation. COMPARISONS: Right hip and pelvis 05/27/2017 and 05/25/2017. TECHNIQUE: 1 view of the pelvis and 1 view of the hip. FINDINGS: Superior dislocation of the right total hip arthroplasty including the acetabular component which is dislocated with the total hip arthroplasty from the [place] acetabulum. Mild buckling of the cortex consistent with an acute right inferior pubic ramus fracture, unchanged c ompared to prior, not definitely seen on 05/25/2017. Bones are demineralized. Mild left hip degenerative joint disease. IMPRESSION: Superior dislocation of the right total hip arthroplasty including the acetabular compone nt which is dislocated with the total hip arthroplasty from the [place] acetabulum. Mild buckling of the cortex consistent with an acute right inferior pubic ramus fracture, unchanged c ompared to prior, not definitely seen on 05/25/2017. [facility] Referring Provider Line: [phone] SITE ID: [id number]
[2017-06-03] MEDS ORDERED: PROPOFOL 200 MG/20 ML VIAL IVP ONE (18:34)
[2017-06-03] MEDS: PROPOFOL 200 MG/20 ML VIAL IVP STA (18:38)
--- NOTE | 2017-06-03 19:24 | XRAY Preliminary Report ---
Exam: XR HIP W/PELVIS 2-3V RT IMPRESSION: The previously seen right total hip arthroplasty dislocation has been relocated, appears in anatomical alignment. Right inferior pubic ramus fracture appears unchanged. No new acute fracture is seen. No dislocation. [facility] SITE ID: [id number]
--- NOTE | 2017-06-03 19:27 | XRAY Report ---
EXAM: RIGHT HIP AND PELVIS RADIOGRAPHY EXAM DATE: 06/03/2017 07:09 PM. HISTORY: Post reduction. COMPARISONS: 06/03/2017. TECHNIQUE: 1 view of the pelvis and 1 view of the hip. FINDINGS: The previously seen right total hip arthroplasty dislocation has been relocated, appears in anatomical alignment. Right inferior pubic ramus fracture appears unchanged. No new acute fracture i s seen. No dislocation. IMPRESSION: The previously seen right total hip arthroplasty dislocation has been relocated, appears in anatomical alignment. Right inferior pubic ramus fracture appears unchanged. No new acute fracture is seen. No dislocation. [facility] Referring Provider Line: [phone] SITE ID: [id number]
[2017-06-03] MEDS: ALBUTEROL NEB 2.5 MG/3 ML INH STA (19:40)
[2017-06-03] MEDS ORDERED: ALBUTEROL NEB 2.5 MG/3 ML INH ONE (19:42)
[2017-06-03 20:25] VITALS: BP 158/76
== END 2017-06-03 20:25 | disposition home or self-care (01) ==
LOC: ED 16:45
DX: T84.020A Dislocation of internal right hip prosthesis, initial encounter (principal); W18.30XA Fall on same level, unspecified, initial encounter; Y92.129 Unspecified place in nursing home as the place of occurrence of the external cause; I10 Essential (primary) hypertension; F17.200 Nicotine dependence, unspecified, uncomplicated
CPT/HCPCS: 27265; 73502; 94640; 94770; 96374; 96376; 99152; 99284; J1170; J7613

== ENCOUNTER 2017-06-03 20:17 | Outpatient (CLI) | payer MEDICARE | END 2017-06-03 20:18 | LOC: EMS 20:17 | PROVIDERS: ATTEND Surgery | DX: M25.551 Pain in right hip (principal) ==

== ENCOUNTER 2017-07-14 09:10 | Outpatient (CLI) | payer MEDICARE ==
[2017-07-14 10:47] LABS: BASOPHILS % (AUTO) 0.2 %; EOSINOPHILS # (AUTO) 0.1 10^3/uL (0.0-0.7); EOSINOPHILS % (AUTO) 1.3 %; HCT - HEMATOCRIT 36.7 % (37.0-47.0); HGB - HEMOGLOBIN 12.6 g/dL (12.0-16.0); LYMPHOCYTES # (AUTO) 2.5 10^3/uL (1.5-3.5); LYMPHOCYTES % (AUTO) 24.6 %; MEAN CORPUSCULAR HEMOGLOBIN 37.8 pg (27.0-31.0); MEAN CORPUSCULAR HGB CONC 34.4 g/dL (32.0-36.0); MEAN CORPUSCULAR VOLUME 109.7 fL (81.0-99.0); MEAN PLATELET VOLUME 7.1 fL (7.9-10.8); MONOCYTES # (AUTO) 0.8 10^3/uL (0.0-1.0); MONOCYTES % (AUTO) 7.4 %; NEUTROPHILS # (AUTO) 6.9 10^3/uL (1.5-6.6); NEUTROPHILS % (AUTO) 66.5 %; NUCLEATED RED BLOOD CELLS AUTO 0.1 /100WBC; RED BLOOD COUNT 3.35 10^6/uL (4.20-5.40); RED CELL DISTRIBUTION WIDTH 12.8 % (12.0-15.0); UNCORRECTED WHITE BLOOD COUNT 10.3 x10^3/uL; WHITE BLOOD COUNT 10.3 x10^3/uL (4.8-10.8)
[2017-07-14 12:42] LABS: FOLATE 7.4 ng/mL (5.90 - >24.8)
== END 2017-07-14 09:11 | disposition home or self-care (01) ==
LOC: LAB.R 09:10
DX: D64.9 Anemia, unspecified (principal); D51.0 Vitamin B12 deficiency anemia due to intrinsic factor deficiency; D52.9 Folate deficiency anemia, unspecified
CPT/HCPCS: 82607; 82746; 85025

== ENCOUNTER 2017-11-06 15:14 | Emergency (ER) | payer MEDICARE, OTHER ==
--- NOTE | 2017-11-06 16:12 | ED Physician Documentation ---
PD HPI ABD PAIN - Stated complaint Stated Complaint: ABD PX - Chief complaint Chief Complaint: Abd Pain - History obtained from History obtained from: Patient - History of Present Illness Timing - onset: How many days ago (10) Timing - duration: Days (10) Timing - details: Gradual onset, Still present Quality: Cramping, Sharp, Pain Location: Suprapubic Radiation: Lower back Improved by: Laying still Worsened by: Moving, Position, Palpation Associated symptoms: Nausea, Vomiting, Diarrhea. No: Fever, Dysuria Similar symptoms before: Has not had sx before Recently seen: Clinic - Additional information Additional information: 67-year-old female is preparing to get a cataract operation done and the surgeon noted her abdomen to be tender. She had been having symptoms for about 10 days and he asked her to go see her primary care doctor. After her primary care doctor examined her, she sent her to the emergency department for evaluation. 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 Review of Systems Constitutional: denies: Fever Eyes: denies: Photophobia Ears: denies: Ear pain Nose: denies: Rhinorrhea / runny nose, Congestion Throat: denies: Sore throat Cardiac: denies: Chest pain / pressure, Palpitations Respiratory: reports: Dyspnea, Cough GI: reports: Abdominal Pain, Nausea, Vomiting, Diarrhea : reports: Incontinent. denies: Dysuria, Frequency Skin: denies: Rash Musculoskeletal: denies: Neck pain, Back pain, Extremity pain PD PAST MEDICAL HISTORY - Past Medical History Cardiovascular: Hypertension, Atrial fibrillation Respiratory: COPD Neuro: None Endocrine/Autoimmune: None GI: Cirrhosis : None HEENT: None Psych: None Musculoskeletal: None Derm: None - Present Medications Home Medications: Ambulatory Orders Medication Instructions Recorded Confirmed Amiodarone [Pacerone] 100 mg PO DAILY 05/25/17 05/26/17 Losartan [Cozaar] 25 mg PO DAILY 05/25/17 05/26/17 Albuterol Sulfate [Proair Hfa 2 puffs INH Q6H PRN 05/26/17 05/26/17 Inhaler] Carvedilol [Coreg] 12.5 mg PO DAILY 05/26/17 05/26/17 Fluoxetine HCl [Fluoxetine HCl] 20 mg PO DAILY PM 05/26/17 05/26/17 Fluticasone 44 Mcg [Flovent] 2 puffs INH BID 05/26/17 05/26/17 Triamterene/Hydrochlorothiazid 1 each PO DAILY 05/26/17 05/26/17 [Triamterene-Hctz 37.5-25 mg Tb] Sulfamethoxazole/Trimethoprim 1 each PO BID #14 tablet 11/06/17 [Sulfamethoxazole-Tmp Ds Tablet] - Allergies Allergies/Adverse Reactions: Allergies Allergy/AdvReac Type Severity Reaction Status Date / Time bacitracin Allergy Unknown Verified 11/06/17 15:25 [From Neosporin ([id number])] bacitracin zinc * Allergy Unknown Verified 11/06/17 15:25 [From Neosporin ([id number])] meperidine HCl * Allergy Unknown Verified 11/06/17 15:25 [From Demerol] neomycin sulfate * Allergy Unknown Verified 11/06/17 15:25 [From Neosporin ([id number])] polymyxin B Allergy Unknown Verified 11/06/17 15:25 [From Neosporin ([id number])] - Social History Does the pt smoke?: Yes Smoking Status: Current every day smoker Does the pt drink ETOH?: Yes Does the pt have substance abuse?: No - Immunizations Immunizations are current?: No Immunizations: TDAP >10years/unknown PD ED PE NORMAL - Vitals Vital signs reviewed: Yes (hypertensive marked) - General General: Alert and oriented X 3, No acute distress, Well developed/nourished - HEENT HEENT: Atraumatic, PERRL, EOMI - Neck Neck: Supple, no meningeal sign, No bony TTP - Cardiac Cardiac: RRR, No murmur - Respiratory Respiratory: No respiratory distress, Other (insp/exp wheezing scattered) - Abdomen Abdomen: Other (lower abdomen is firm and tender- reproducible R and L upper are non-tender. Well healed midline scar) - Back Back: No CVA TTP, No spinal TTP - Derm Derm: Normal color, Warm and dry, No rash - Extremities Extremities: No deformity, No edema - Neuro Neuro: Alert and oriented X 3, steel hanger 2-12 intact, No motor deficit, No sensory deficit, Normal speech Eye Opening: Spontaneous Motor: Obeys Commands Verbal: Oriented GCS Score: 15 - Psych Psych: Normal mood, Normal affect Results - Vitals Vitals: Vital Signs - 24 hr 11/06/17 15:20 Temperature 36.7 C Heart Rate 92 Respiratory 16 Rate Blood Pressure 163/116 H O2 Saturation 94 Oxygen O2 Source Room air - Labs Labs: Laboratory Tests 11/06/17 11/06/17 11/06/17 16:20 16:30 17:06 WBC 8.6 RBC 4.46 Hgb 15.4 Hct 45.9 MCV 102.9 H MCH 34.6 H MCHC 33.6 RDW 14.5 Plt Count 366 MPV 6.4 L Neut # 5.9 Lymph # 2.1 [place] # 0.6 Eos # 0.0 Baso # 0.1 Absolute Nucleated RBC 0.01 Nucleated RBC % 0.1 Sodium 133 L Potassium 3.1 L Chloride 94 L Carbon Dioxide 28 Anion Gap 11.0 BUN 6 Creatinine 0.5 Estimated GFR (MDRD) 123 Glucose 99 Calcium 8.9 Total Bilirubin 0.7 AST 21 ALT < 10 L Alkaline Phosphatase 137 H Troponin I Total Protein 7.1 Albumin 3.7 Globulin 3.4 Albumin/Globulin Ratio 1.1 Lipase 14 L Urine Color YELLOW Urine Clarity HAZY Urine pH 6.5 Ur Specific [place] 1.020 Urine Protein TRACE Urine Glucose (UA) NEGATIVE Urine Ketones NEGATIVE Urine Occult Blood NEGATIVE Urine Nitrite POSITIVE H Urine Bilirubin NEGATIVE Urine Urobilinogen 0.2 (NORMAL) Ur Leukocyte Esterase TRACE H Urine RBC None Seen Urine WBC >25 H Ur Squamous Epith Cells RARE Squamous Urine Bacteria Many H Ur Microscopic Review INDICATED Urine Culture Comments INDICATED 11/06/17 17:06 WBC RBC Hgb Hct MCV MCH MCHC RDW Plt Count MPV Neut # Lymph # [place] # Eos # Baso # Absolute Nucleated RBC Nucleated RBC % Sodium Potassium Chloride Carbon Dioxide Anion Gap BUN Creatinine Estimated GFR (MDRD) Glucose Calcium Total Bilirubin AST ALT Alkaline Phosphatase Troponin I < 0.04 Total Protein Albumin Globulin Albumin/Globulin Ratio Lipase Urine Color Urine Clarity Urine pH Ur Specific [place] Urine Protein Urine Glucose (UA) Urine Ketones Urine Occult Blood Urine Nitrite Urine Bilirubin Urine Urobilinogen Ur Leukocyte Esterase Urine RBC Urine WBC Ur Squamous Epith Cells Urine Bacteria Ur Microscopic Review Urine Culture Comments - Rads (name of study) CT abdomen and pelvis with Radiology: Prelim report reviewed (Impression: 1. No localizing acute inflammatory process 2. mildly lobulated liver suggesting chronic liver disease.3. No dilated bowel.), EMP read indepedently, See rad report Procedures - Bedside sono Bedside sono by EMP: With the use of bedside ultrasound the lower abdomen is examined for distended bladder and there is no evidence of distended bladder. - IVC sono (time) 1655 Bedside IVC sono: IVC measures (cm) (1.72), IVC collapsed c insp (cm) (1.12), Euvolemia PD MEDICAL DECISION MAKING - ED course Complexity details: reviewed old records, reviewed results, re-evaluated patient , considered differential, d/w patient ED course: 67 y/o female with a history of COPD has developed abdominal pain of 10 days duration and has a bladder infection that shows up on CT. She is administered IV rocephin and we will put her on some sulfa. She has plans to get a cataract operation done. Departure - Departure Disposition: 01 Home, Self Care Clinical Impression: Urinary tract infection Qualifiers: Urinary tract infection type: acute cystitis Hematuria presence: without hematuria Qualified Code(s): N30.00 - Acute cystitis without hematuria Condition: Stable Instructions: ED UTI Cystitis Female Follow-Up: Francheska Sandoval PA [Primary Care Provider] - Prescriptions: Sulfamethoxazole/Trimethoprim [Sulfamethoxazole-Tmp Ds Tablet] 1 each PO BID # 14 tablet
[2017-11-06] MEDS ORDERED: IOPAMIDOL-300 100 ML VIAL ONE (16:22)
[2017-11-06 16:32] LABS: BILIRUBIN,URINE NEGATIVE (NEGATIVE); GLUCOSE, URINE (UA) NEGATIVE (NEGATIVE); KETONES,URINE (UA) NEGATIVE (NEGATIVE); LEUKOCYTE ESTERASE, URINE TRACE (NEGATIVE); NITRITE,URINE POSITIVE (NEGATIVE); OCCULT BLOOD,URINE NEGATIVE (NEGATIVE); PH,URINE 6.5 PH (5.0-7.5); PROTEIN,URINE TRACE mg/dL (NEGATIVE); UROBILINOGEN,URINE 0.2 (NORMAL) E.U./dL (NORMAL)
[2017-11-06 16:35] LABS: CLARITY,URINE HAZY (CLEAR)
[2017-11-06 16:43] LABS: BASOPHILS # (AUTO) 0.1 10^3/uL (0.0-0.1); BASOPHILS % (AUTO) 0.6 %; EOSINOPHILS % (AUTO) 0.2 %; HGB - HEMOGLOBIN 15.4 g/dL (12.0-16.0); LYMPHOCYTES # (AUTO) 2.1 10^3/uL (1.5-3.5); LYMPHOCYTES % (AUTO) 24.1 %; MEAN CORPUSCULAR HEMOGLOBIN 34.6 pg (27.0-31.0); MEAN CORPUSCULAR HGB CONC 33.6 g/dL (32.0-36.0); MEAN CORPUSCULAR VOLUME 102.9 fL (81.0-99.0); MEAN PLATELET VOLUME 6.4 fL (7.9-10.8); MONOCYTES # (AUTO) 0.6 10^3/uL (0.0-1.0); MONOCYTES % (AUTO) 6.7 %; NEUTROPHILS # (AUTO) 5.9 10^3/uL (1.5-6.6); NEUTROPHILS % (AUTO) 68.4 %; PLT - PLATELET COUNT 366 10^3/uL (130-450); RED BLOOD COUNT 4.46 10^6/uL (4.20-5.40); RED CELL DISTRIBUTION WIDTH 14.5 % (12.0-15.0); WHITE BLOOD COUNT 8.6 x10^3/uL (4.8-10.8)
[2017-11-06 16:47] LABS: BACTERIA,URINE Many /HPF (None Seen); RBC,URINE None Seen /HPF (0-5); SQUAMOUS EPITHELIAL CELL,UR RARE Squamous (<= Few)
[2017-11-06] MEDS ORDERED: cefTRIAXone 1 GM in SODIUM CHLORIDE 0.9% MINIBAG 100 ML IV STA (17:07)
[2017-11-06 17:26] LABS: ALBUMIN 3.7 g/dL (3.2-5.5); ALBUMIN/GLOBULIN RATIO 1.1 (1.0-2.2); ALKALINE PHOSPHATASE 137 IU/L (42-121); ALT ALANINE AMINOTRANSFERASE < 10 IU/L (10-60); AST ASPARTATE AMINOTRANSFERASE 21 IU/L (10-42); BILIRUBIN,TOTAL 0.7 mg/dL (0.2-1.0); BUN - BLOOD UREA NITROGEN 6 mg/dL (6-20); CALCIUM 8.9 mg/dL (8.5-10.3); CARBON DIOXIDE - CO2 28 mmol/L (21-32); CHLORIDE 94 mmol/L (101-111); CREATININE 0.5 mg/dL (0.4-1.0); GFR - MDRD 123 (>89); GLUCOSE 99 mg/dL (70-100); LIPASE 14 U/L (22-51); SODIUM 133 mmol/L (135-145); TOTAL PROTEIN 7.1 g/dL (6.7-8.2)
[2017-11-06] MEDS ORDERED: POTASSIUM BICARB 25 MEQ TABLET PO STA (17:44)
[2017-11-06] MEDS ORDERED: IOPAMIDOL-300 100 ML VIAL IVP ONE (18:29)
--- NOTE | 2017-11-06 18:52 | CT Report ---
EXAM: CT ABDOMEN AND PELVIS EXAM DATE: 11/06/2017 06:29 PM. CLINICAL HISTORY: Suprapubic pain X 10 days. COMPARISONS: None. TECHNIQUE: Routine helical CT imaging was performed through the abdomen and pelvis. IV contrast: 100 ML ISOVUE 300. Enteric contrast: No. Reconstructions: Coronal and sagittal. In accordance with CT protocol optimization, one or more of the following dose reduction techniques w ere utilized for this exam: automated exposure control, adjustment of mA and/or KV based on patient s ize, or use of iterative reconstructive technique. FINDINGS: Lung Bases: Unremarkable. Liver: The liver capsule has a mildly lobulated contour. No focal liver lesion. Gallbladder/Bile Ducts: Unremarkable. Spleen: Normal. Pancreas: Normal. Adrenal Glands: Normal. Kidneys: Normal. No masses or hydronephrosis. Peritoneal Cavity/Bowel: The bowel is normal in caliber. There is no transition zone. There is no abn ormal fluid or gas collection. Pelvic Organs: Urinary bladder is partially fluid-filled and otherwise unremarkable. Uterus not visua lized. Vasculature: There is moderate atherosclerotic vascular calcification without aneurysm. Bones: There is old right inferior pubic ramus fracture. Other: None. IMPRESSION: 1. No localizing a acute inflammatory process. 2. Mildly lobulated liver suggesting chronic liver disease. 3. No dilated bowel. [facility] Referring Provider Line: [phone] SITE ID: [id number]
--- NOTE | 2017-11-06 18:52 | CT Preliminary Report ---
Exam: CT ABDOMEN/PELVIS W/ IMPRESSION: 1. No localizing a acute inflammatory process. 2. Mildly lobulated liver suggesting chronic liver disease. 3. No dilated bowel. [facility] SITE ID: [id number]
[2017-11-06] MEDS ORDERED: IPRATROPIUM/ALBUTEROL 3 ML NEB INH STA (18:53)
[2017-11-06 19:54] VITALS: BP 160/100
== END 2017-11-06 19:50 | disposition home or self-care (01) ==
LOC: ED 15:14
DX: N30.00 Acute cystitis without hematuria (principal); I10 Essential (primary) hypertension; J44.9 Chronic obstructive pulmonary disease, unspecified; I48.91 Unspecified atrial fibrillation; Z86.39 Personal history of other endocrine, nutritional and metabolic disease; F17.200 Nicotine dependence, unspecified, uncomplicated
CPT/HCPCS: 36415; 74177; 80053; 81001; 83690; 84484; 85025; 87077; 87086; 87181; 94640; 96365; 99283; A9270; Q9967; 81003

== ENCOUNTER 2017-11-20 12:06 | Outpatient (CLI) | payer MEDICARE, OTHER ==
--- NOTE | 2017-11-20 13:35 | XRAY Report ---
THREE VIEW RIGHT KNEE: 11/20/2017 CLINICAL INDICATION: Trauma, pain. FINDINGS: AP, lateral, sunrise views of the right knee demonstrate minimal osteoarthritis, with small marginal osteophytes. There is no evidence of acute fracture or dislocation. No effusion is present. IMPRESSION: MINIMAL OSTEOARTHRITIS. TD: 11/20/2017 13:35
== END 2017-11-20 12:07 | disposition home or self-care (01) ==
LOC: DI 12:06
PROVIDERS: ATTEND Physician Assistant
DX: M17.11 Unilateral primary osteoarthritis, right knee (principal)

== ENCOUNTER 2017-12-25 08:34 | Day surgery (SDC) | payer MEDICARE, OTHER ==
[~2017-12-25 08:34] MED LIST: BRIMONIDINE 0.2% OPHTH DROPS 5 ML ONE; BSS/LIDOCAINE/EPINEPHRINE 1 ML SYRINGE ONE; TIMOLOL 0.5% OPHTH DROPS ONE
[2017-12-25] MEDS ORDERED: KETOROLAC 0.45% OPHTH DROPS ONE (08:44)
[2017-12-25] MEDS ORDERED: PHENYLEPHRINE 2.5% OPHTH 2 ML DROPS ONE (08:45)
[2017-12-25] MEDS ORDERED: PROPARACAINE 0.5% OPHTH DROPS 15 ML ONE (08:45)
[2017-12-25] MEDS ORDERED: CYCLOPENTOLATE 1% OPHTH DROPS 2 ML ONE (08:45)
[2017-12-25] MEDS ORDERED: PHENYLEPHRINE 2.5% OPHTH 2 ML DROPS LEFTEYE ONE (09:05)
[2017-12-25] MEDS ORDERED: KETOROLAC 0.45% OPHTH DROPS LEFTEYE ONE (09:05)
[2017-12-25] MEDS ORDERED: CYCLOPENTOLATE 1% OPHTH DROPS 2 ML LEFTEYE ONE (09:05)
[2017-12-25] MEDS ORDERED: PROPARACAINE 0.5% OPHTH DROPS 15 ML LEFTEYE ONE ×2 (09:05→10:05)
[2017-12-25] MEDS ORDERED: LACTATED RINGERS 500 ML IV ONE (09:15)
[2017-12-25] MEDS ORDERED: MIDAZOLAM 2 MG/2 ML VIAL IVP ONE (09:50)
[2017-12-25] MEDS ORDERED: EPINEPHrine 1 MG/ML AMP IR ONE (10:03)
[2017-12-25] MEDS ORDERED: BRIMONIDINE 0.2% OPHTH DROPS 5 ML OPTH ONE (10:03)
[2017-12-25] MEDS ORDERED: TIMOLOL 0.5% OPHTH DROPS OPTH ONE (10:04)
[2017-12-25] MEDS ORDERED: CHONDR SULF/HYALURONATE SYRINGE IO ONE (10:04)
[2017-12-25] MEDS ORDERED: TRIAMCIN/MOXIFLOX/VANCO 1 ML VIAL IO ONE (10:04)
[2017-12-25] MEDS ORDERED: BSS/LIDOCAINE/EPINEPHRINE 1 ML SYRINGE IO ONE (10:04)
--- NOTE | 2017-12-25 10:29 | OPERATIVE REPORT ---
DATE OF SERVICE: 12/25/2017 Physician: Dirk Parikh MD PREOPERATIVE DIAGNOSIS: Visually significant cataract, left eye. This was her first cataract surgery. POSTOPERATIVE DIAGNOSIS: Visually significant cataract, left eye. This was her first cataract surgery. NAME OF PROCEDURE: Phacoemulsification with posterior chamber intraocular lens implant, left eye. SURGEON: Dirk Parikh MD ANESTHESIA: Monitored anesthesia care. COMPLICATIONS: None. OPERATIVE INDICATIONS: This is a 67-year-old woman with progressive vision loss in the left eye due to 3+ nuclear sclerotic and vacuolar cataract. Best corrected visual acuity was 20/60 with glare to 20/125 in the left eye. Indications for surgery were overall decrease in vision, difficulty seeing words on a computer screen, difficulty reading; difficulty seeing words, closed captions, or game scores on TV; difficulty seeing street signs, difficulty driving in low light or at night, difficulty driving at night because of headlights from other vehicles and difficulty with glare or bright lights in any situation. She was consented at length concerning risks and benefits of cataract surgery, after which she expressed a desire to proceed with surgery. OPERATIVE PROCEDURE: Patient was taken into OR #3 and placed under monitored anesthesia care. A surgical timeout was conducted confirming correct patient, correct procedure and correct surgical site. She was given topical anesthesia, and then prepped and draped in the usual sterile fashion. The eye was entered at the 6 and 3 o'clock positions. Intracameral Shugarcaine was injected into the anterior chamber, followed by Viscoat. A continuous-tear curvilinear capsulorrhexis was performed. The nucleus was hydrodissected and phacoemulsified. The cortex was evacuated using automated infusion and aspiration. Provisc was injected in the capsular bag and a 21.5 diopter intraocular lens was inserted in the bag. Approximately 0.7 mL of a mixture of triamcinolone and moxifloxacin was injected subconjunctivally in the superior quadrant for infection and inflammation prophylaxis. I and A was used to evacuate the viscoelastic materials. The eye was inflated to physiologic pressure using a balanced salt solution and found to be watertight. Patient was taken from the operating room in good condition and given postoperative instructions. TD: 12/25/2017 10:27
[2017-12-25 10:38] VITALS: BP 142/65
== END 2017-12-25 08:35 | disposition home or self-care (01) ==
LOC: SDS 08:34
PROVIDERS: ATTEND Ophthalmology
PROC: 08RK3JZ Replacement of Left Lens with Synthetic Substitute, Percutaneous Approach (ICD-10-PCS; principal; 2017-12-25 09:30)
DX: H25.812 Combined forms of age-related cataract, left eye (principal); I10 Essential (primary) hypertension; I48.91 Unspecified atrial fibrillation
CPT/HCPCS: 66984; A9270; J3490; V2632

== ENCOUNTER 2018-02-26 09:17 | Day surgery (SDC) | payer MEDICARE, OTHER ==
[~2018-02-26 09:17] MED LIST changes: +EPINEPHrine 1 MG/ML AMP ONE; +TRIAMCIN/MOXIFLOX OPHTHALMIC 0.6 ML VIAL IO ONE; +VANCOMYCIN OPHTHALMI 8MG/0.8ML 8 MG/0.8 ML SYRINGE IO ONE
[2018-02-26] MEDS ORDERED: PROPARACAINE 0.5% OPHTH DROPS 15 ML ONE (10:17)
[2018-02-26] MEDS ORDERED: KETOROLAC 0.45% OPHTH DROPS ONE (10:17)
[2018-02-26] MEDS ORDERED: PHENYLEPHRINE 2.5% OPHTH 2 ML DROPS ONE (10:17)
[2018-02-26] MEDS ORDERED: CYCLOPENTOLATE 1% OPHTH DROPS 2 ML ONE (10:17)
[2018-02-26] MEDS ORDERED: KETOROLAC 0.45% OPHTH DROPS RIGHTEYE ONE (10:28)
[2018-02-26] MEDS ORDERED: PROPARACAINE 0.5% OPHTH DROPS 15 ML RIGHTEYE ONE ×2 (10:28→11:22)
[2018-02-26] MEDS ORDERED: CYCLOPENTOLATE 1% OPHTH DROPS 2 ML RIGHTEYE ONE (10:28)
[2018-02-26] MEDS ORDERED: PHENYLEPHRINE 2.5% OPHTH 2 ML DROPS RIGHTEYE ONE (10:29)
[2018-02-26] MEDS ORDERED: LACTATED RINGERS 500 ML IV ONE (10:33)
[2018-02-26] MEDS ORDERED: CHONDR SULF/HYALURONATE SYRINGE IO ONE (11:21)
[2018-02-26] MEDS ORDERED: BRIMONIDINE 0.2% OPHTH DROPS 5 ML OPTH ONE (11:21)
[2018-02-26] MEDS ORDERED: EPINEPHrine 1 MG/ML AMP IR ONE (11:21)
[2018-02-26] MEDS ORDERED: BSS/LIDOCAINE/EPINEPHRINE 1 ML SYRINGE IO ONE (11:22)
[2018-02-26] MEDS ORDERED: TIMOLOL 0.5% OPHTH DROPS OPTH ONE (11:22)
[2018-02-26] MEDS ORDERED: MIDAZOLAM 2 MG/2 ML VIAL IVP ONE (11:27)
[2018-02-26] MEDS ORDERED: PROPOFOL 200 MG/20 ML VIAL IVP ONE (11:27)
[2018-02-26] MEDS ORDERED: LIDOCAINE-MPF 2% 5 ML VIAL IM ONE (11:27)
[2018-02-26] MEDS ORDERED: ALBUTEROL NEB 2.5 MG/3 ML INH ONE (12:00)
--- NOTE | 2018-02-26 12:43 | OPERATIVE REPORT ---
DATE OF SERVICE: 02/26/2018 Physician: Dirk Parikh MD PREOPERATIVE DIAGNOSIS: Visually significant cataract, right eye. Cataract surgery was performed on the left eye on 12/25/2017. POSTOPERATIVE DIAGNOSIS: Visually significant cataract, right eye. Cataract surgery was performed on the left eye on 12/25/2017. PROCEDURE: Phacoemulsification with posterior chamber intraocular lens implant , right eye. SURGEON: Dirk Parikh MD. ANESTHESIA: General anesthesia. COMPLICATIONS: None. OPERATIVE INDICATIONS: This is a 67-year-old woman with progressive vision loss in the right eye due to a 3+ nuclear sclerotic cataract. Best corrected visual acuity was 20 /40 with glare to 20/80 in the right eye. INDICATIONS FOR SURGERY 1. Overall decrease in vision. 2. Difficulty seeing words on a computer screen. 3. Difficulty reading. 4. Difficulty seeing words, closed captions, or game scores on TV. 5. Difficulty seeing street signs, difficulty driving in low light or at night , and difficulty driving at night because of headlights from other vehicles. INFORMED CONSENT: She was consented at length concerning risks and benefits of cataract surgery, after which she expressed a desire to proceed with surgery. OPERATIVE PROCEDURE: A surgical timeout was conducted confirming correct patient, correct procedure, and correct surgical site. The patient was taken into OR #3 and was placed under monitored anesthesia care; however, after draping and manipulating her eyelids, she was wincing in pain and moving quite a bit. It seemed out of proportion for what was occurring , so we decided to switch to general anesthesia. She was undraped, placed under general anesthesia and intubated with an LMA, and then redraped. She was again prepped and draped in the usual sterile manner. The eye was entered atthe 12 and 9-o'clock positions. Intracameral Shugarcaine was injected into the anterior chamber, followed by Viscoat. A continuous-tear curvilinear capsulorrhexis was performed. The nucleus was hydrodissected and phacoemulsified. The cortex was evacuated using automated infusion and aspiration. Provisc was injected into the capsular bag and a 22.0-diopter intraocular lens inserted in the bag. Approximately 0.8 mL of a mixture of triamcinolone, moxifloxacin, and vancomycin was injected subconjunctivally in the superior quadrant for infection and inflammation prophylaxis. I and A was used to evacuate the viscoelastic materials. The eye was inflated to physiologic pressure using a balanced salt solution and found to be watertight. The patient was extubated and taken from the operating room in good condition and given postop instructions. TD: 02/26/2018 11:50 MTDD
[2018-02-26 13:01] VITALS: BP 162/82
== END 2018-02-26 09:18 | disposition home or self-care (01) ==
LOC: SDS 09:17
PROVIDERS: ATTEND Ophthalmology
PROC: 08RJ3JZ Replacement of Right Lens with Synthetic Substitute, Percutaneous Approach (ICD-10-PCS; principal; 2018-02-26 10:30)
DX: H25.11 Age-related nuclear cataract, right eye (principal); I48.91 Unspecified atrial fibrillation; I10 Essential (primary) hypertension; F17.210 Nicotine dependence, cigarettes, uncomplicated; J44.9 Chronic obstructive pulmonary disease, unspecified
CPT/HCPCS: 66984; A9270; J3490; V2632

== ENCOUNTER 2018-03-16 13:47 | Outpatient (CLI) | payer MEDICARE, OTHER | END 2018-03-16 13:48 | disposition home or self-care (01) | LOC: DI 13:47 | PROVIDERS: ATTEND Physician Assistant | DX: I48.2 Chronic atrial fibrillation (principal); I10 Essential (primary) hypertension; R60.0 Localized edema; I49.3 Ventricular premature depolarization; M54.5 Low back pain | CPT/HCPCS: 72100; 93005; 93306 ==

== ENCOUNTER 2018-03-16 13:49 | Outpatient (CLI) | payer MEDICARE, OTHER ==
--- NOTE | 2018-03-17 09:15 | XRAY Report ---
Procedure Date: 03/16/2018 Accession Number: [id number] / [id number] Procedure: XR - Lumbar Spine 2 View CPT Code: FULL RESULT: EXAM: Lumbar Spine 2 View DATE: 03/16/2018 3:53 PM CLINICAL HISTORY: LBP COMPARISON: Limited comparison is made to the MRI of the lumbar spine 12/04/2011. TECHNIQUE: 2 views. FINDINGS: Alignment: Normal. No spondylolisthesis or scoliosis. Bones: Five [id number] lumbar vertebral bodies are present. No fractures or bone lesions. Marginal osteophytosis in keeping with degenerative changes. Disks: There is mild loss of disc space height at all lumbar spinal levels. Facets: Facet arthrosis is identified at all lumbar levels most pronounced at L4-5 and L5-S1. Sacroiliac Joints: Unremarkable. Soft Tissues: Normal. The visualized bowel gas pattern is normal. Right total hip arthroplasty is noted. Extensive aortic calcifications are noted. IMPRESSION: Degenerative changes of the lumbar spine, facet arthropathy predominantly. [facility]
== END 2018-03-16 13:50 | disposition home or self-care (01) ==
LOC: DI 13:49
PROVIDERS: ATTEND Physician Assistant
DX: M54.5 Low back pain (principal)
CPT/HCPCS: 72100

== ENCOUNTER 2018-06-18 08:18 | Day surgery (SDC) | payer MEDICARE, OTHER ==
[~2018-06-18 08:18] MED LIST changes: -BSS/LIDOCAINE/EPINEPHRINE 1 ML SYRINGE ONE; +CYCLOPENTOLATE 1% OPHTH DROPS 2 ML ONE; +KETOROLAC 0.45% OPHTH DROPS ONE; +PHENYLEPHRINE 2.5% OPHTH 2 ML DROPS ONE; +PROPARACAINE 0.5% OPHTH DROPS 15 ML ONE
[2018-06-18] MEDS ORDERED: LACTATED RINGERS 1,000 ML IV ONE (08:25)
[2018-06-18] MEDS ORDERED: KETOROLAC 0.45% OPHTH DROPS RIGHTEYE ONE (08:35)
[2018-06-18] MEDS ORDERED: PROPARACAINE 0.5% OPHTH DROPS 15 ML RIGHTEYE ONE ×2 (08:35→09:38)
[2018-06-18] MEDS ORDERED: CYCLOPENTOLATE 1% OPHTH DROPS 2 ML RIGHTEYE ONE ×2 (08:35)
[2018-06-18] MEDS ORDERED: PHENYLEPHRINE 2.5% OPHTH 2 ML DROPS RIGHTEYE ONE ×2 (08:35)
--- NOTE | 2018-06-18 08:48 | ANESTHESIA ---
Pre-Anesthesia VS, & Labs - Diagnosis Right retained lens fragment - Procedure Right anterior extraction of lens fragment Vital Signs: Temp Pulse Resp BP Pulse Ox 36.2 C L 71 16 138/80 H 96 06/18/18 08:36 06/18/18 08:36 06/18/18 08:36 06/18/18 08:36 06/18/18 08:36 Height 5 ft 5 in Weight (kg) 47.63 kg Body Mass Index 18.1 - NPO >8 hours Last Fluid Intake: Water with pills at 0700, - Is Patient ?: Not Applicable Home Medications and Allergies Amiodarone [Pacerone] 100 mg PO DAILY 05/25/17 Losartan [Cozaar] 25 mg PO DAILY 05/25/17 Albuterol Sulfate [Proair Hfa Inhaler] 2 puffs INH Q6H PRN 05/26/17 Carvedilol [Coreg] 12.5 mg PO DAILY 05/26/17 Fluticasone 44 Mcg [Flovent] 2 puffs INH BID 05/26/17 Triamterene/Hydrochlorothiazid [Triamterene-Hctz 37.5-25 mg Tb] 1 each PO DAILY 05/26/17 Multivitamin [Multiple Vitamins] 1 each PO DAILY 12/24/17 Allergies/Adverse Reactions: Allergies Allergy/AdvReac Type Severity Reaction Status Date / Time bacitracin Allergy Hives Verified 02/26/18 10:44 [From Neosporin ([id number])] bacitracin zinc * Allergy Rash Verified 02/26/18 10:44 [From Neosporin ([id number])] meperidine HCl * Allergy Respiratory Verified 02/26/18 10:43 [From Demerol] neomycin sulfate * Allergy Unknown Verified 02/24/18 14:37 [From Neosporin ([id number])] polymyxin B Allergy Unknown Verified 02/24/18 14:37 [From Neosporin ([id number])] Anes History & Medical History - Anesthetic History Anesthesia Complications: reports: No previous complications Family history of Anesthesia Complications: Denies Family history of Malignant Hyperthermia: Denies - Medical History Cardiovascular: reports: Hypertension, Atrial fibrillation Pulmonary: reports: COPD Gastrointestinal: reports: Cirrhosis Urinary: reports: None Neuro: reports: None Musculoskeletal: reports: None Endocrine/Autoimmune: reports: None Blood Disorders: reports: None Skin: reports: None Smoking Status: Current every day smoker Psychosocial: reports: No issues indicated - Surgical History Orthopedic: Hip replacement, Other Exam General: Alert Dental: WNL Mouth Openin Fingerbreadth Neck Mobility: Normal Mallampati classification: II Thyromental Distance: greater than 6 cm Respiratory: Other (Exp wheezes) Cardiovascular: Regular rate Mental/Cognitive Status: Alert/Oriented X3 Cognitive Status: Within normal limits Plan Anesthesia Type: MAC Consent for Procedure(s) Verified and Reviewed: Yes Code Status: Attempt Resuscitation ASA classification: 3-Severe systemic disease Is this case an emergency?: No
[2018-06-18] MEDS ORDERED: EPINEPHrine 1 MG/ML AMP IR ONE (09:36)
[2018-06-18] MEDS ORDERED: BRIMONIDINE 0.2% OPHTH DROPS 5 ML OPTH ONE (09:36)
[2018-06-18] MEDS ORDERED: TIMOLOL 0.5% OPHTH DROPS OPTH ONE (09:37)
[2018-06-18] MEDS ORDERED: CHONDR SULF/HYALURONATE SYRINGE IO ONE (09:37)
[2018-06-18] MEDS ORDERED: BSS/LIDOCAINE/EPINEPHRINE 1 ML SYRINGE IO ONE (09:38)
[2018-06-18] MEDS ORDERED: fentaNYL 100 MCG/2 ML VIAL IVP ONE (09:40)
[2018-06-18] MEDS ORDERED: MIDAZOLAM 2 MG/2 ML VIAL IVP ONE (09:40)
[2018-06-18] MEDS ORDERED: LACTATED RINGERS 500 ML IV ONE (09:43)
[2018-06-18 10:19] VITALS: BP 135/77
--- NOTE | 2018-06-18 11:23 | OPERATIVE REPORT ---
DATE OF SERVICE: 06/18/2018 Physician: Dirk Parikh MD PREOPERATIVE DIAGNOSIS: Retained lens fragment from cataract surgery performed 02/26/2018. POSTOPERATIVE DIAGNOSIS: Retained lens fragment from cataract surgery performed 02/26/2018. PROCEDURE: Lens fragment removal from anterior chamber using phacoemulsification. SURGEON: Dr. Dirk Parikh. ANESTHESIA: Monitored anesthesia care. COMPLICATIONS: None. 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 During an exam earlier this month it was noted that there was a lens fragment in the anterior chamber inferiorly and that was probably why she kept having iritis. This was discussed with the patient and we decided to remove the lens fragment. Indications for surgery were as above. She was consented concerning the risks and benefits of lens fragment removal, and she expressed a desire to proceed with surgery. OPERATIVE PROCEDURE: Patient was taken into OR #3 and placed under monitored anesthesia care. A surgical timeout was conducted confirming correct patient, correct procedure, and correct surgical site. The patient was very tense, very nervous, requiring 2 mg of Versed and 100ug of Fentanyl to calm her down. She was then prepped and draped in usual sterile fashion. The eye was entered through the original wound at 9-o'clock, and a new paracentesis was made at 12 o'clock. Intracameral Shugarcaine was injected into the anterior chamber, followed by Viscoat. The lens fragment was found in the inferior aspect of the anterior chamber, captured, and phacoemulsified. I and A was then used to evacuate the viscoelastic materials. Approximately 0.8 mL of a mixture of triamcinolone, moxifloxacin, and vancomycin was injected subconjunctivally in the superior quadrant for inflammation and infection prophylaxis. The eye was inflated to physiologic pressure using balanced salt solution and found to be watertight. Patient was taken from the operating room in good condition and given postop instructions. TD: 06/18/2018 10:03 [facility]
== END 2018-06-18 08:19 | disposition home or self-care (01) ==
LOC: SDS 08:18
PROVIDERS: ATTEND Ophthalmology
PROC: 085J3ZZ Destruction of Right Lens, Percutaneous Approach (ICD-10-PCS; principal; 2018-06-18 09:30)
DX: H59.021 Cataract (lens) fragments in eye following cataract surgery, right eye (principal); I10 Essential (primary) hypertension; I48.91 Unspecified atrial fibrillation; J44.9 Chronic obstructive pulmonary disease, unspecified; F17.210 Nicotine dependence, cigarettes, uncomplicated
CPT/HCPCS: 66850; A9270; J7120

== ENCOUNTER 2019-01-19 18:12 | Outpatient (CLI) | payer MEDICARE, OTHER | END 2019-01-19 18:13 | disposition E | LOC: EMS 18:12 | PROVIDERS: ATTEND Surgery ==